=== PATIENT | male | born 1970 | race Caucasian/White ===

== ENCOUNTER 2016-09-18 14:20 | Emergency (ER) | payer SELFPAY ==
[~2016-09-18 14:20] MED LIST: ACET325T9 PO; ALBU18HF IH; ATOR20TA PO; IBUP-1227 PO; NAPR375T3 PO
[2016-09-18] MEDS ORDERED: IV NORMAL SALINE 1,000ML 1,000 ML IV ONE ×2 (14:30→16:20)
[2016-09-18] MEDS ORDERED: NALOXONE 0.4 MG/ML VIAL. ONE (14:30)
[2016-09-18] MEDS ORDERED: NALOXONE 0.4 MG/ML VIAL. IV ONE (15:00)
--- NOTE | 2016-09-18 15:03 | EKG ---
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
[2016-09-18 15:06] LABS: ACETAMIN 87.9 mcg/mL (10-30); ETHANOL < 10 mg/dL (0-10); SALIC 3.1 mg/dL (2.8-20.0)
[2016-09-18 15:07] LABS: CALCIUM 8.8 mg/dL (8.5-10.1); CREATININE 1.1 mg/dL (0.7-1.3); DIRECT BILIRUBIN 0.2 mg/dL (0.0-0.2); GFR 72.7; POTASSIUM 3.5 mmol/L (3.5-5.1); TOTAL PROTEIN 7.2 g/dL (6.4-8.2)
[2016-09-18] MEDS ORDERED: NALOXONE 2 MG in IV DEXTROSE 5% 500 ML IV ONE ×4 (15:30)
[2016-09-18 15:34] LABS: BARBITURATES NEG (NEG); BENZODIAZEPINES NEG (NEG); CANNABINOIDS NEG (NEG); COCAINE NEG (NEG); METHADONE NEG (NEG); OPIATES POS (NEG); PHENCYCLIDINE NEG (NEG)
[2016-09-18 15:35] LABS: AMPHETAMINE/METHAMPHETAMINE POS (NEG)
--- NOTE | 2016-09-18 15:37 | RAD ---
Interval AP view CXR: Clinical indications: Overdose. Drowsiness. Weakness. Comparison: October 29, 2015. Findings: No acute lung infiltrate or pleural effusion or pulmonary edema or lung mass or pneumothorax is seen. The heart size, pulmonary vasculature, mediastinum and both avelina are unremarkable. Impression: No acute radiographic abnormality is seen.
[2016-09-18 15:43] LABS: BILIRUBIN,URINE NEG (NEG); CLARITY,URINE CLEAR; COLOR,URINE YELLOW; GLUCOSE,URINE NEG (NEG); NITRITE,URINE NEG (NEG); UROBILINOGEN,URINE 0.2 mg/dL (0.2 mg/dL)
[2016-09-18 15:44] LABS: BACTERIA,URINE 0 /HPF (0-FEW); RBC,URINE 0 /HPF (0-2); SQUAMOUS EPITHELIAL CELL,UR OCC /LPF; WBC,URINE OCC /HPF (0-4)
[2016-09-18 16:18] LABS: BASO # 0.1 x10^3/uL (0.0-0.2); BASO % 1 % (0-3); EOS # 0.2 x10^3/uL (0.0-0.7); EOS % 2 % (0-3); HEMATOCRIT 49.1 % (39.0-53.0); HEMOGLOBIN 16.7 g/dL (13.0-17.5); LYMPH # 2.5 x10^3/uL (1.0-4.8); LYMPH % 22 % (24-48); MEAN CORPUSCULAR HEMOGLOBIN 32 pg (25-35); MEAN CORPUSCULAR HGB CONC 34 g/dL (31-37); MEAN CORPUSCULAR VOLUME 92 fL (79-100); MONO # 0.4 x10^3/uL (0.0-1.1); MONO % 3 % (0-9); NEUT # 8.4 x10^3uL (1.8-7.7); NEUT % 73 % (31-73); PLATELET COUNT 288 x10^3/uL (140-400); RED BLOOD COUNT 5.32 x10^6/uL (4.30-5.70); RED CELL DISTRIBUTION WIDTH 13.7 % (11.5-14.5); WHITE BLOOD COUNT 11.5 x10^3/uL (4.0-11.0)
--- NOTE | 2016-09-18 17:06 | ED.ADGEN ---
Past History Past Medical History: Arthritis, Asthma, Depression, High Cholesterol, Other Past Surgical History: Appendectomy, Tonsillectomy Alcohol Use: Occasionally Drug Use: Marijuana, Other Social History Narrative: acid Adult General HPI HPI Patient is a 45-year-old man, history of asthma, depression, anxiety, who presents emergency Department with his with report of an intentional ingestion of approximately 20 tablets of hydrocodone/acetaminophen, 53 25 mg. Patient is tearful upon arousing emergency department, and states "I'm just tired of living". Patient's states that he took a large handful of pills in front of her, she states that he he did cough up some pills, maybe as many as 5 or 6, but did ingest the rest. Patient denies any other ingestions, and patient's states she does not believe that he had access or took any other medications. Patient does not use his medications regular basis. Patient is also experiencing auditory hallucinations, although he'll not answer my questions about these hallucinations at this time, patient's reports that it isn't having 2 more frequently. She states that he previously was evaluated by a local therapy group, but is not currently on medication. No other self injures behaviors or homicidal ideation or activities reported. At this time the patient states that he is willing to seek help, he is crying during my evaluation. Review of Systems Review of Systems Constitutional: Denies fever or chills [] Eyes: Denies change in visual acuity, redness, or eye pain [] HENT: Denies nasal congestion or sore throat [] Respiratory: Denies cough or shortness of breath [] Cardiovascular: No additional information not addressed in HPI [] GI: Denies abdominal pain, nausea, vomiting, bloody stools or diarrhea [] : Denies dysuria or hematuria [] Musculoskeletal: Denies back pain or joint pain [] Integument: Denies rash or skin lesions [] Neurologic: Denies headache, focal weakness or sensory changes [] Endocrine: Denies polyuria or polydipsia [] Depression and anxiety with suicidal ideation and auditory hallucinations. Current Medications Current Medications Current Medications Medications (Trade) Dose Ordered Sig/Umer Start Time Stop Time Status Last Admin Dose Admin Naloxone HCl (Narcan) 0.4 mg STK-MED ONCE 09/18/16 14:30 09/18/16 14:31 DC Naloxone HCl 0.4 mg 0.4 mg 1X ONCE 09/18/16 15:00 09/18/16 15:01 DC 09/18/16 14:35 0.4 MG Naloxone HCl 2 mg/ Dextrose 502 ml @ 0 mls/hr 1X ONCE 09/18/16 15:30 09/18/16 15:31 DC 09/18/16 15:28 62.5 MLS/HR Sodium Chloride (Iv Sodium Chloride 0.9% 1,000ml) 1,000 ml @ 1,000 mls/hr 1X ONCE 09/18/16 16:20 09/18/16 17:19 DC 09/18/16 14:30 1,000 MLS/HR Allergies Allergies Allergies Coded Allergies Type Severity Reaction Last Updated Verified No Known Drug Allergies 11/04/14 No Physical Exam Physical Exam Constitutional: Well developed, well nourished, patient is anxious, tearful, nontoxic in appearance. HENT: Normocephalic, atraumatic, bilateral external ears normal, oropharynx moist, no oral exudates, nose normal. [] Eyes: Pinpoint pupils, PERRLA, EOMI, conjunctiva normal, no discharge. [] Neck: Normal range of motion, no tenderness, supple, no stridor. [] Cardiovascular:Heart rate regular rhythm, no murmur him S1, S2, rubs or gallops. [] Lungs & Thorax: Bilateral breath sounds clear to auscultation , no wheezing, rhonchi, rales. No chest or crepitus or tenderness. [] Abdomen: Bowel sounds normal, soft, no tenderness, no rebound, rigidity, no guarding, no masses, no pulsatile masses. [] Skin: Warm, dry, no erythema, no rash. [] Back: No tenderness, no CVA tenderness. [] Extremities: No tenderness, no cyanosis, no clubbing, ROM intact, no edema. [] Neurologic: Alert and oriented X 3, normal motor function, normal sensory function, no focal deficits noted. [] Psychologic: Patient is tearful, appears to have good insight, answering questions appropriately. Current Patient Data Vital Signs Vital Signs Date Time Temp Pulse Resp B/P Pulse Ox O2 Delivery O2 Flow Rate FiO2 09/18/16 14:20 97.8 91 14 96 Room Air Lab Results Laboratory Tests Test 09/18/16 14:33 09/18/16 14:35 09/18/16 14:55 White Blood Count 11.5x10^3/uL (4.0-11.0) H Red Blood Count 5.32x10^6/uL (4.30-5.70) Hemoglobin 16.7g/dL (13.0-17.5) Hematocrit 49.1% (39.0-53.0) Mean Corpuscular Volume 92fL (79-100) Mean Corpuscular Hemoglobin 32pg (25-35) Mean Corpuscular Hemoglobin Concent 34g/dL (31-37) Red Cell Distribution Width 13.7% (11.5-14.5) Platelet Count 288x10^3/uL (140-400) Neutrophils (%) (Auto) 73% (31-73) Lymphocytes (%) (Auto) 22% (24-48) L Monocytes (%) (Auto) 3% (0-9) Eosinophils (%) (Auto) 2% (0-3) Basophils (%) (Auto) 1% (0-3) Neutrophils # (Auto) 8.4x10^3uL (1.8-7.7) H Lymphocytes # (Auto) 2.5x10^3/uL (1.0-4.8) Monocytes # (Auto) 0.4x10^3/uL (0.0-1.1) Eosinophils # (Auto) 0.2x10^3/uL (0.0-0.7) Basophils # (Auto) 0.1x10^3/uL (0.0-0.2) Prothrombin Time 11.1SEC (9.4-11.4) Prothrombin Time INR 1.1 (0.9-1.1) PTT 32SEC (23-33) Sodium Level 139mmol/L (136-145) 140mmol/L (136-145) Potassium Level 3.5mmol/L (3.5-5.1) 3.4mmol/L (3.5-5.1) L Chloride Level 101mmol/L (98-107) 101mmol/L (98-107) Carbon Dioxide Level 26mmol/L (21-32) 25mmol/L (21-32) Anion Gap 12 (6-14) 14 (6-14) Blood Urea Nitrogen 8mg/dL (8-26) 8mg/dL (8-26) Creatinine 1.1mg/dL (0.7-1.3) 1.1mg/dL (0.7-1.3) Estimated GFR (Cockcroft-Gault) 72.7 72.7 Glucose Level 143mg/dL (70-99) H 141mg/dL (70-99) H Calcium Level 8.8mg/dL (8.5-10.1) 8.8mg/dL (8.5-10.1) Total Bilirubin 1.0mg/dL (0.2-1.0) 1.0mg/dL (0.2-1.0) Direct Bilirubin 0.2mg/dL (0.0-0.2) Aspartate Amino Transferase (AST) 9U/L (15-37) L 9U/L (15-37) L Alanine Aminotransferase (ALT) 16U/L (16-63) 17U/L (16-63) Alkaline Phosphatase 58U/L (46-116) 59U/L (46-116) Total Protein 7.2g/dL (6.4-8.2) 7.2g/dL (6.4-8.2) Albumin 4.0g/dL (3.4-5.0) 4.0g/dL (3.4-5.0) Salicylates Level 3.1mg/dL (2.8-20.0) Salicylate Last Dose Date 09/18/16 Salicylate Last Dose Time 1300 Acetaminophen Level 87.9mcg/mL (10-30) H 88.5mcg/mL (10-30) H Acetaminophen Last Dose Date 09/18/16 09/18/16 Acetaminophen Last Dose Time 1300 1330 Ethyl Alcohol Level < 10mg/dL (0-10) BUN/Creatinine Ratio 7 (6-20) Albumin/Globulin Ratio 1.3 (1.0-1.7) Urine Collection Type Unknown Urine Color Yellow Urine Clarity Clear Urine pH 5.0 Urine Specific Galvin 1.010 Urine Protein Neg (NEG-TRACE) Urine Glucose (UA) Negmg/dL (NEG) Urine Ketones (Stick) Negmg/dL (NEG) Urine Blood Neg (NEG) Urine Nitrite Neg (NEG) Urine Bilirubin Neg (NEG) Urine Urobilinogen Dipstick 0.2mg/dL (0.2 mg/dL) Urine Leukocyte Esterase Neg (NEG) Urine RBC 0/HPF (0-2) Urine WBC Occ/HPF (0-4) Urine Squamous Epithelial Cells Occ/LPF Urine Bacteria 0/HPF (0-FEW) Urine Mucus Slight/LPF Urine Opiates Screen Pos (NEG) Urine Methadone Screen Neg (NEG) Urine Barbiturates Neg (NEG) Urine Phencyclidine Screen Neg (NEG) Urine Amphetamine/Methamphetamine Pos (NEG) Urine Benzodiazepines Screen Neg (NEG) Urine Cocaine Screen Neg (NEG) Urine Cannabinoids Screen Neg (NEG) Urine Ethyl Alcohol Neg (NEG) EKG EKG EC: Sinus rhythm, heart rate 82 beats minute, upright axis, QTC of 421, [place] of 162, QRS of 88, no ST elevations or depressions, no evidence of acute ST abnormalities. As read by me. [] Radiology/Procedures Radiology/Procedures [] [address] [address] IMAGING REPORT Signed PATIENT: SAIRA CLAY ACCOUNT: [id number] : 1970 LOCATION: ER AGE: 45 SEX: M EXAM STATUS: REG ER ORD. PHYSICIAN: ROXANNE RODRÍGUEZ DO REASON: Overdose, drowsiness, weakness PROCEDURE: PORTABLE CHEST 1V Interval AP view CXR: Clinical indications: Overdose. Drowsiness. Weakness. Comparison: October 29, 2015. Findings: No acute lung infiltrate or pleural effusion or pulmonary edema or lung mass or pneumothorax is seen. The heart size, pulmonary vasculature, mediastinum and both avelina are unremarkable. Impression: No acute radiographic abnormality is seen. DICTATED AND SIGNED BY: BILL VICTORIA MD DATE: 09/18/16 1533 CC: ROXANNE RODRÍGUEZ DO; ADITYA JIMENEZ ~ Course & Med Decision Making Course & Med Decision Making Pertinent Labs and Imaging studies reviewed. (See chart for details) Initial laboratory studies drawn upon arrival in the ED, approximate 1 hour from ingestion per report, patient's initial acetaminophen level 87.9, LFTs and coags within normal limits. I did speak with poison control, upon patient's arrival to the ED, approximated acetaminophen ingestion of 6.5 g, below toxic dose, however patient's opioid ingestion is significant, patient did receive a dose of Narcan in the ED for an episode of diminished responsiveness and diminished respirations, and was placed on a Narcan drip with improvement, patient was never hypotensive or bradycardic, although his oxygen saturation did drop down to the mid 80s during his initial evaluation. Blood pressure remains 120s over 70s, with heart rate in the 60s, Narcan drip, oxygen saturations 97% on room air with respiratory rate in the teens. I did discuss with patient and at bedside medical management and monitoring, and need for admission for both medical and psychiatric care. Patient is agreeable with this plan as is his at bedside. He is uncooperative at this point. Per poison control, no indication for neck to be given at this time, patient is seated is on a Narcan drip, 4 hour acetaminophen and LFT levels are ordered. I did speak to Dr. Holley of internal medicine at [facility], who stated that due to the patient's complicated medical and psychological issues, that he would request the patient be transferred to a facility agreeable to provide both intensive medical and psychiatric care. I did speak to nurse coordinator Annel at via the transfer line, patient was accepted to the service of Dr. Serrano. Patient resting comfortably, stable in the monitor in sinus rhythm with patient's at bedside, awake alert and oriented, awaiting transport to . Final Impression Final Impression [] Problems: (1) Suicidal ideation (2) Acetaminophen abuse (3) Opioid overdose Qualifiers: Qualified Code: T40.2X2A - Poisoning by other opioids, intentional self-harm , initial encounter (4) Auditory hallucinations Dragon Disclaimer Dragon Disclaimer This electronic medical record was generated, in whole or in part, using a voice recognition dictation system. ROXANNE RODRÍGUEZ DO Sep 18, 2016 17:06
[2016-09-18 17:31] LABS: ALBUMIN/GLOBULIN RATIO 1.3 (1.0-1.7); CALCIUM 8.8 mg/dL (8.5-10.1); CREATININE 1.1 mg/dL (0.7-1.3); GFR 72.7; POTASSIUM 3.4 mmol/L (3.5-5.1); TOTAL PROTEIN 7.2 g/dL (6.4-8.2)
[2016-09-18 17:33] LABS: ACETAMIN 88.5 mcg/mL (10-30)
[2016-09-18 18:40] VITALS: BP 112/72
--- NOTE | 2016-09-21 07:00 | EKG ---
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
== END 2016-09-18 18:45 ==
LOC: ER 14:20
DX: T40.2X2A Poisoning by other opioids, intentional self-harm, initial encounter (principal); T39.1X2A Poisoning by 4-Aminophenol derivatives, intentional self-harm, initial encounter; R45.851 Suicidal ideations; F19.10 Other psychoactive substance abuse, uncomplicated; R44.0 Auditory hallucinations; F32.9 Major depressive disorder, single episode, unspecified; F41.9 Anxiety disorder, unspecified; E78.00 Pure hypercholesterolemia, unspecified; M19.90 Unspecified osteoarthritis, unspecified site; J45.909 Unspecified asthma, uncomplicated; F12.10 Cannabis abuse, uncomplicated; Y92.89 Other specified places as the place of occurrence of the external cause
CPT/HCPCS: 36415; 51701; 71010; 80048; 80053; 80076; 80305; 80320; 81001; 85027; 85610; 85730; 93005; 96361; 96365; 96376; 99285; G6038; J2310; G0480; G0481; 80196; J7030

== ENCOUNTER 2016-10-04 20:57 | Emergency (ER) | payer SELFPAY ==
[~2016-10-04] VITALS: Ht 177.8 cm; Wt 88.0 kg
[2016-10-04 21:00] VITALS: BP 135/83
[2016-10-04 21:41] LABS: BASO # 0.1 x10^3/uL (0.0-0.2); BASO % 1 % (0-3); EOS # 0.3 x10^3/uL (0.0-0.7); EOS % 3 % (0-3); HEMOGLOBIN 14.9 g/dL (13.0-17.5); LYMPH # 2.5 x10^3/uL (1.0-4.8); LYMPH % 20 % (24-48); MEAN CORPUSCULAR HEMOGLOBIN 32 pg (25-35); MEAN CORPUSCULAR HGB CONC 35 g/dL (31-37); MEAN CORPUSCULAR VOLUME 92 fL (79-100); MONO # 0.6 x10^3/uL (0.0-1.1); MONO % 5 % (0-9); NEUT # 9.1 x10^3uL (1.8-7.7); NEUT % 72 % (31-73); PLATELET COUNT 231 x10^3/uL (140-400); RED CELL DISTRIBUTION WIDTH 13.8 % (11.5-14.5); WHITE BLOOD COUNT 12.7 x10^3/uL (4.0-11.0)
[2016-10-04 21:46] LABS: ALBUMIN 3.3 g/dL (3.4-5.0); ALBUMIN/GLOBULIN RATIO 1.1 (1.0-1.7); CALCIUM 8.7 mg/dL (8.5-10.1); DIRECT BILIRUBIN 0.1 mg/dL (0.0-0.2); GFR 81.2; POTASSIUM 3.7 mmol/L (3.5-5.1); TOTAL BILIRUBIN 0.4 mg/dL (0.2-1.0); TOTAL PROTEIN 6.4 g/dL (6.4-8.2)
[2016-10-04 21:55] LABS: BACTERIA,URINE 0 /HPF (0-FEW); BILIRUBIN,URINE NEG (NEG); CLARITY,URINE CLEAR; COLOR,URINE YELLOW; GLUCOSE,URINE NEG (NEG); NITRITE,URINE NEG (NEG); RBC,URINE 0 /HPF (0-2); UROBILINOGEN,URINE 1 mg/dL (0.2 mg/dL); WBC,URINE 0 /HPF (0-4)
--- NOTE | 2016-10-04 21:59 | PHYS DOC ---
Past History Past Medical History: Arthritis, Asthma, Depression, High Cholesterol, Other Past Surgical History: Appendectomy, Tonsillectomy Smoking: Cigarettes Alcohol Use: Occasionally Drug Use: Marijuana, Other Adult General Chief Complaint Chief Complaint: "I'm worried I'm jaundiced" HPI HPI Patient is a 45 year old male who presents with the concern that he may be jaundiced. He had an initial overdose of Vicodin on September 18. He was then admitted to [facility] and then psychiatry following that. He was just discharged on September 26.v has been feeling well except developed a slight backache. He was out camping on Monday. He had small amount of alcohol on Monday night. No nausea vomiting, no abdominal pain. He thought his eyes looked a little "yellow". Review of Systems Review of Systems Constitutional: Denies fever or chills Eyes: Denies change in visual acuity, redness, or eye pain HENT: Denies nasal congestion or sore throat. allergy symptoms Respiratory: Denies cough or shortness of breath Cardiovascular: No chest pain or syncope. GI: Denies abdominal pain, nausea, vomiting, bloody stools or diarrhea : Denies dysuria or hematuria Musculoskeletal: Mild low back pain or joint pain; no pedal edema. Integument: scattered bites on abdomen; no pruritics Neurologic: Denies headache, focal weakness or sensory changes Current Medications Current Medications Current Medications Medications (Trade) Dose Ordered Sig/Umer Start Time Stop Time Status Last Admin Dose Admin Ondansetron HCl (Zofran) 4 mg 1X ONCE 10/04/16 22:00 10/04/16 22:01 Sodium Chloride 1,000 ml @ 1,000 mls/hr Q1H 10/04/16 22:00 10/04/16 22:59 Allergies Allergies Allergies Coded Allergies Type Severity Reaction Last Updated Verified No Known Drug Allergies 11/04/14 No Physical Exam Physical Exam Constitutional: Well developed, well nourished, no acute distress, non-toxic appearance. HENT: Normocephalic, atraumatic, bilateral external ears normal, oropharynx moist, no oral exudates, nose normal. Eyes: PERRLA, EOMI, conjunctiva normal, no discharge. Sclera non-icteric Neck: Normal range of motion, no tenderness, supple, no stridor. Cardiovascular:Heart rate regular rhythm, no murmur Lungs & Thorax: Bilateral breath sounds clear to auscultation Abdomen: Bowel sounds normal, soft, no tenderness, no masses, no pulsatile masses. No ascites. No hepatosplenomegaly. Skin: Warm, dry, no erythema, scattered small red raised maculopapular lesions noted on abdomen. No spider angiomas, no petecchiae. No stria. Back: No tenderness, no CVA tenderness. Extremities: No tenderness, no cyanosis, no clubbing, ROM intact, no edema. Neurologic: Alert and oriented X 3, normal motor function, normal sensory function, no focal deficits noted. Psychologic: Affect normal, judgement normal, mood normal. Current Patient Data Vital Signs 135/83, P85, R 20, 98% sat, T 98.3 Lab Results Laboratory Tests Test 10/04/16 21:10 10/04/16 21:20 Urine Collection Type Unknown Urine Color Yellow Urine Clarity Clear Urine pH 6.5 Urine Specific [place] 1.020 Urine Protein Neg Urine Glucose (UA) Neg mg/dL Urine Ketones (Stick) Neg mg/dL Urine Blood Neg Urine Nitrite Neg Urine Bilirubin Neg Urine Urobilinogen Dipstick 1 mg/dL Urine Leukocyte Esterase Neg Urine RBC 0 /HPF Urine WBC 0 /HPF Urine Squamous Epithelial Cells None /LPF Urine Bacteria 0 /HPF White Blood Count 12.7 x10^3/uL Red Blood Count 4.70 x10^6/uL Hemoglobin 14.9 g/dL Hematocrit 43.0 % Mean Corpuscular Volume 92 fL Mean Corpuscular Hemoglobin 32 pg Mean Corpuscular Hemoglobin Concent 35 g/dL Red Cell Distribution Width 13.8 % Platelet Count 231 x10^3/uL Neutrophils (%) (Auto) 72 % Lymphocytes (%) (Auto) 20 % Monocytes (%) (Auto) 5 % Eosinophils (%) (Auto) 3 % Basophils (%) (Auto) 1 % Neutrophils # (Auto) 9.1 x10^3uL Lymphocytes # (Auto) 2.5 x10^3/uL Monocytes # (Auto) 0.6 x10^3/uL Eosinophils # (Auto) 0.3 x10^3/uL Basophils # (Auto) 0.1 x10^3/uL Prothrombin Time 10.2 SEC Prothromb Time International Ratio 1.0 Activated Partial Thromboplast Time 31 SEC Sodium Level 143 mmol/L Potassium Level 3.7 mmol/L Chloride Level 106 mmol/L Carbon Dioxide Level 27 mmol/L Anion Gap 10 Blood Urea Nitrogen 14 mg/dL Creatinine 1.0 mg/dL Estimated GFR (Cockcroft-Gault) 81.2 BUN/Creatinine Ratio 14 Glucose Level 93 mg/dL Calcium Level 8.7 mg/dL Total Bilirubin 0.4 mg/dL Direct Bilirubin 0.1 mg/dL Aspartate Amino Transf (AST/SGOT) 11 U/L Alanine Aminotransferase (ALT/SGPT) 24 U/L Alkaline Phosphatase 55 U/L Total Protein 6.4 g/dL Albumin 3.3 g/dL Albumin/Globulin Ratio 1.1 Lipase 214 U/L Current Medications Medications (Trade) Dose Ordered Sig/Umer Route PRN Reason Start Time Stop Time Status Last Admin Dose Admin Sodium Chloride 1,000 ml @ 1,000 mls/hr Q1H IV 10/04/16 22:00 10/04/16 22:59 Ondansetron HCl (Zofran) 4 mg 1X ONCE IV 10/04/16 22:00 10/04/16 22:01 DC Laboratory Tests Test 10/04/16 21:20 White Blood Count 12.7 x10^3/uL (4.0-11.0) H Red Blood Count 4.70 x10^6/uL (4.30-5.70) Hemoglobin 14.9 g/dL (13.0-17.5) Hematocrit 43.0 % (39.0-53.0) Mean Corpuscular Volume 92 fL (79-100) Mean Corpuscular Hemoglobin 32 pg (25-35) Mean Corpuscular Hemoglobin Concent 35 g/dL (31-37) Red Cell Distribution Width 13.8 % (11.5-14.5) Platelet Count 231 x10^3/uL (140-400) Neutrophils (%) (Auto) 72 % (31-73) Lymphocytes (%) (Auto) 20 % (24-48) L Monocytes (%) (Auto) 5 % (0-9) Eosinophils (%) (Auto) 3 % (0-3) Basophils (%) (Auto) 1 % (0-3) Neutrophils # (Auto) 9.1 x10^3uL (1.8-7.7) H Lymphocytes # (Auto) 2.5 x10^3/uL (1.0-4.8) Monocytes # (Auto) 0.6 x10^3/uL (0.0-1.1) Eosinophils # (Auto) 0.3 x10^3/uL (0.0-0.7) Basophils # (Auto) 0.1 x10^3/uL (0.0-0.2) Sodium Level 143 mmol/L (136-145) Potassium Level 3.7 mmol/L (3.5-5.1) Chloride Level 106 mmol/L (98-107) Carbon Dioxide Level 27 mmol/L (21-32) Anion Gap 10 (6-14) Blood Urea Nitrogen 14 mg/dL (8-26) Creatinine 1.0 mg/dL (0.7-1.3) Estimated GFR (Cockcroft-Gault) 81.2 BUN/Creatinine Ratio 14 (6-20) Glucose Level 93 mg/dL (70-99) Calcium Level 8.7 mg/dL (8.5-10.1) Total Bilirubin 0.4 mg/dL (0.2-1.0) Direct Bilirubin 0.1 mg/dL (0.0-0.2) Aspartate Amino Transferase (AST) 11 U/L (15-37) L Alanine Aminotransferase (ALT) 24 U/L (16-63) Alkaline Phosphatase 55 U/L (46-116) Total Protein 6.4 g/dL (6.4-8.2) Albumin 3.3 g/dL (3.4-5.0) L Albumin/Globulin Ratio 1.1 (1.0-1.7) Lipase 214 U/L (73-393) Course & Med Decision Making Course & Med Decision Making Pertinent Labs and Imaging studies reviewed. (See chart for details) He is concerned about the after effects of Tylenol overdose. Presently his exam does not reveal an acute hepatic failure. No evidence of jaundice. No spider angioma. No petechiae. Abdomen is soft with no ascites. Coags normal as well. Dragon Disclaimer Dragon Disclaimer This chart was dictated in whole or in part using Voice Recognition software in a busy, high-work load, and often noisy Emergency Department environment. It may contain unintended and wholly unrecognized errors or omissions. Departure Departure: Disposition: 01 HOME, SELF-CARE Condition: GOOD Referrals: ADITYA JIMENEZ (PCP) JERRY BLAKELY MD October 04, 2016 21:59
[2016-10-04] MEDS: ONDANSETRON PF 4 MG/2 ML VIAL. IV ONE (22:00)
[2016-10-04] MEDS: IV NORMAL SALINE 1,000ML 1,000 ML IV SCH (22:00)
== END 2016-10-04 22:50 | disposition home or self-care (01) ==
LOC: ER 20:57
DX: M54.5 Low back pain (principal); J45.909 Unspecified asthma, uncomplicated; E78.00 Pure hypercholesterolemia, unspecified; M19.90 Unspecified osteoarthritis, unspecified site; F17.210 Nicotine dependence, cigarettes, uncomplicated; F12.10 Cannabis abuse, uncomplicated
CPT/HCPCS: 36415; 80053; 80076; 81001; 83690; 85027; 85610; 85730; 96361; 96374; 99284; J2405; J7030

== ENCOUNTER 2016-10-11 22:11 | Emergency (ER) | payer SELFPAY ==
[~2016-10-11] VITALS: Ht 177.8 cm; Wt 88.0 kg
--- NOTE | 2016-10-11 22:19 | ED.ADGEN ---
Past History Past Medical History: Depression Past Surgical History: No Surgical History Smoking: Cigarettes Alcohol Use: None Drug Use: None Adult General Chief Complaint Chief Complaint Nausea vomiting abdominal pain [facility] HPI Patient is a 45 year old male who presents with nausea vomiting abdominal pain. He states it started yesterday he was in a [facility] hospital and received IV fluids and GI cocktail and felt better and was discharged home. Today he has been out of town in getting a chance to fill his anti-nausea/ heartburn medicine and tonight at 7 PM he started having nausea vomiting and abdominal pain again. He points to his epigastric area and states it hurts across her. Nothing makes it better or worse. He is thrown up all of his food he ate today. He did have a normal bowel movement early this morning. He has had his appendix removed approximately 12:15 years ago. He denies any chest pain shortness of breath. Review of Systems Review of Systems Constitutional: Denies fever or chills [] Eyes: Denies change in visual acuity, redness, or eye pain [] HENT: Denies nasal congestion or sore throat [] Respiratory: Denies cough or shortness of breath [] Cardiovascular: No additional information not addressed in HPI [] GI: Positive for abdominal pain, nausea, vomiting, denies any bloody stools or diarrhea [] : Denies dysuria or hematuria [] Musculoskeletal: Denies back pain or joint pain [] Integument: Denies rash or skin lesions [] Neurologic: Denies headache, focal weakness or sensory changes [] Endocrine: Denies polyuria or polydipsia [] Current Medications Current Medications Current Medications Medications (Trade) Dose Ordered Sig/[facility] Start Time Stop Time Status Last Admin Dose Admin Info (Do NOT chart on this entry -- for MONITORING) 1 each PRN DAILY PRN 10/12/16 00:15 10/14/16 00:14 Iohexol (Omnipaque 300 Mg/ml) 75 ml 1X ONCE 10/12/16 00:15 10/12/16 00:16 DC 10/12/16 00:17 75 ML Morphine Sulfate (Morphine 4mg Syringe) 4 mg PRN Q15MIN PRN 10/11/16 22:30 10/12/16 22:29 10/11/16 22:55 4 MG Multi-Ingredient Mouthwash/Gargle (Gi Cocktail) 20 ml 1X ONCE 10/12/16 00:30 10/12/16 00:53 DC 10/12/16 00:30 20 ML Ondansetron HCl (Zofran) 4 mg 1X ONCE 10/11/16 23:15 10/11/16 23:16 DC 10/11/16 22:55 4 MG Sodium Chloride 1,000 ml @ 1,000 mls/hr Q1H 10/11/16 22:27 10/11/16 23:26 DC 10/11/16 22:55 1,000 MLS/HR Allergies Allergies Allergies Coded Allergies Type Severity Reaction Last Updated Verified No Known Drug Allergies 11/04/14 No Physical Exam Physical Exam Constitutional: Well developed, well nourished, no acute distress, non-toxic appearance. [] HENT: Normocephalic, atraumatic, bilateral external ears normal, oropharynx moist, no oral exudates, nose normal. [] Eyes: PERRLA, EOMI, conjunctiva normal, no discharge. [] Neck: Normal range of motion, no tenderness, supple, no stridor. [] Cardiovascular:Heart rate regular rhythm, no murmur [] Lungs & Thorax: Bilateral breath sounds clear to auscultation [] Abdomen: Bowel sounds normal, soft, mild tender to palpation epigastric area, no rebound or guarding, no masses, no pulsatile masses. [] Skin: Warm, dry, no erythema, no rash. [] Back: No tenderness, no CVA tenderness. [] Extremities: No tenderness, no cyanosis, no clubbing, ROM intact, no edema. [] Neurologic: Alert and oriented X 3, normal motor function, normal sensory function, no focal deficits noted. [] Psychologic: Affect normal, judgement normal, mood normal. [] Current Patient Data Vital Signs Vital Signs Date Time Temp Pulse Resp B/P (MAP) Pulse Ox O2 Delivery O2 Flow Rate FiO2 10/12/16 01:15 71 18 133/89 (104) 98 10/11/16 23:30 Room Air 10/11/16 22:15 97.0 Lab Results Laboratory Tests Test 10/11/16 22:45 10/11/16 22:50 Urine Collection Type Unknown Urine Color Yellow Urine Clarity Clear Urine pH 8.5 Urine Specific [place] 1.015 Urine Protein Neg (NEG-TRACE) Urine Glucose (UA) Neg mg/dL (NEG) Urine Ketones (Stick) Neg mg/dL (NEG) Urine Blood Neg (NEG) Urine Nitrite Neg (NEG) Urine Bilirubin Neg (NEG) Urine Urobilinogen Dipstick 0.2 mg/dL (0.2 mg/dL) Urine Leukocyte Esterase Neg (NEG) Urine RBC Rare /HPF (0-2) Urine WBC 0 /HPF (0-4) Urine Squamous Epithelial Cells None /LPF Urine Amorphous Sediment Present /HPF Urine Bacteria 0 /HPF (0-FEW) Urine Opiates Screen Neg (NEG) Urine Methadone Screen Neg (NEG) Urine Barbiturates Neg (NEG) Urine Phencyclidine Screen Neg (NEG) Urine Amphetamine/Methamphetamine Neg (NEG) Urine Benzodiazepines Screen Neg (NEG) Urine Cocaine Screen Neg (NEG) Urine Cannabinoids Screen Neg (NEG) Urine Ethyl Alcohol Neg (NEG) White Blood Count 16.5 x10^3/uL (4.0-11.0) H Red Blood Count 5.33 x10^6/uL (4.30-5.70) Hemoglobin 17.0 g/dL (13.0-17.5) Hematocrit 47.9 % (39.0-53.0) Mean Corpuscular Volume 90 fL (79-100) Mean Corpuscular Hemoglobin 32 pg (25-35) Mean Corpuscular Hemoglobin Concent 35 g/dL (31-37) Red Cell Distribution Width 14.0 % (11.5-14.5) Platelet Count 251 x10^3/uL (140-400) Neutrophils (%) (Auto) 84 % (31-73) H Lymphocytes (%) (Auto) 10 % (24-48) L Monocytes (%) (Auto) 4 % (0-9) Eosinophils (%) (Auto) 1 % (0-3) Basophils (%) (Auto) 1 % (0-3) Neutrophils # (Auto) 13.8 x10^3uL (1.8-7.7) H Lymphocytes # (Auto) 1.7 x10^3/uL (1.0-4.8) Monocytes # (Auto) 0.7 x10^3/uL (0.0-1.1) Eosinophils # (Auto) 0.1 x10^3/uL (0.0-0.7) Basophils # (Auto) 0.2 x10^3/uL (0.0-0.2) Segmented Neutrophils % 74 % (35-66) H Band Neutrophils % 5 % (0-9) Lymphocytes % 12 % (24-48) L Monocytes % 8 % (0-10) Eosinophils % 1 % (0-5) Platelet Estimate Adequate (ADEQUATE) Prothrombin Time 10.4 SEC (9.4-11.4) Prothrombin Time INR 1.0 (0.9-1.1) PTT 30 SEC (23-33) Sodium Level 138 mmol/L (136-145) Potassium Level 3.9 mmol/L (3.5-5.1) Chloride Level 101 mmol/L (98-107) Carbon Dioxide Level 29 mmol/L (21-32) Anion Gap 8 (6-14) Blood Urea Nitrogen 10 mg/dL (8-26) Creatinine 1.1 mg/dL (0.7-1.3) Estimated GFR (Cockcroft-Gault) 72.7 Glucose Level 115 mg/dL (70-99) H Calcium Level 9.4 mg/dL (8.5-10.1) Total Bilirubin 0.7 mg/dL (0.2-1.0) Direct Bilirubin 0.2 mg/dL (0.0-0.2) Aspartate Amino Transferase (AST) 17 U/L (15-37) Alanine Aminotransferase (ALT) 35 U/L (16-63) Alkaline Phosphatase 69 U/L (46-116) Creatine Kinase 46 U/L (39-308) Creatine Kinase MB (Mass) < 0.5 ng/mL (0.0-3.6) Creatine Kinase MB Relative Index 1.1 % (0-4) Troponin I Quantitative < 0.017 ng/mL (0-0.055) Total Protein 7.4 g/dL (6.4-8.2) Albumin 4.0 g/dL (3.4-5.0) Lipase 117 U/L (73-393) EKG EKG EKG shows sinus rhythm 3-[address] elevations or T-wave inversions, normal axis, QTC 402 ms, as interpreted by me. EKG is similar to one performed in August 2016. Radiology/Procedures Radiology/Procedures Acute abdominal series show any focal consolidations, bony abnormalities, free air, bowel obstruction or other concerns. As interpreted by me. [address] [address] IMAGING REPORT Signed PATIENT: SAIRA CLAY ACCOUNT: [id number] : 1970 LOCATION: ER AGE: 45 SEX: M EXAM STATUS: REG ER ORD. PHYSICIAN: VINCENT AVELAR MD REASON: abd pain PROCEDURE: CT ABD PELV W/ IV CONTRST ONLY CT abdomen and pelvis with contrast HISTORY: Abdominal pain, nausea, vomiting, leukocytosis, history of appendectomy. TECHNIQUE: Helical CT imaging abdomen and pelvis with 75 mL Omnipaque 300 intravenous contrast. Abdomen findings: There is extensive bilateral dependent lower lobe opacities and mild volume loss. Chronic mild T10 compression deformity. Liver, gallbladder, pancreas, adrenal glands, spleen and kidneys are unremarkable. There is concentric hypodense submucosal wall thickening of the gastric antrum leading up to the pylorus. There is mild segmental fluid distention and possibly mild fold thickening of the duodenum and proximal jejunum. No bowel obstruction. Appendectomy. A few scattered sigmoid colon diverticuli are present. No abdominal fluid. No adenopathy. Pelvis findings: Bladder, prostate, rectum and bones are unremarkable. No fluid or adenopathy. IMPRESSION: 1. Marked concentric submucosal hypodense wall thickening of the gastric antrum. This raises suspicion of intramural wall edema from gastritis. Malignant infiltration is not excluded although given the uniformity and absence of pathologic enhancement or obstruction, neoplasm may be less likely. Peptic ulcer disease would be a secondary consideration. 2. Increased fluid distention and fold thickening of the duodenum and proximal jejunum could be indicative of enteritis. 3. Extensive opacities of the dependent lower lobes and mild volume loss could be extensive atelectasis although superimposed pneumonitis or infection is not excluded. Electronically signed by: Sandra Christopher MD (10/12/2016 12:44 AM) DICTATED AND SIGNED BY: SANDRA CHRISTOPHER MD DATE: 10/12/16 0033 CC: VINCENT AVELAR MD; ADITYA JIMENEZ Course & Med Decision Making Course & Med Decision Making Pertinent Labs and Imaging studies reviewed. (See chart for details) Labs show any acute abnormalities. His white blood cell count is slightly elevated however this is likely secondary to stress response. He does not have a fever. CT scan shows enteritis and gastritis. We'll discharge with Phenergan, Zofran. He has Protonix prescription already at home. He is instructed to use a bland diet, follow-up with primary care physician and return ER for worsening pain, fevers, blood in his stools or other concerns. Final Impression Final Impression Nausea Vomiting Epigastric discomfort Problems: Dragon Disclaimer Dragon Disclaimer This electronic medical record was generated, in whole or in part, using a voice recognition dictation system. VINCENT AVELAR MD October 11, 2016 22:19
[2016-10-11] MEDS ORDERED: IV NORMAL SALINE 1,000ML 1,000 ML IV SCH (22:27)
[2016-10-11] MEDS ORDERED: MORPHINE SULFATE 4 MG/ML DISP.SYRIN. IV/SQ PRN (22:30)
--- NOTE | 2016-10-11 22:40 | EKG ---
[address] [address] Test Date: 2016-10-11 Test Time: 22:41:24 Pat Name: SAIRA CLAY Department: Room: Gender: M [employer]: : 1970 Requested By: VINCENT AVELAR Order Number: [id number] Reading MD: Ronal Strong Measurements Intervals [place] Rate: 72 P: 40 SD: 150 QRS: 62 QRSD: 84 T: 68 QT: 366 QTc: 402 Interpretive Statements SINUS RHYTHM Electronically Signed On 10-13-2016 15:34:42 CDT by Ronal Strong
[2016-10-11] MEDS ORDERED: ONDANSETRON PF 4 MG/2 ML VIAL. IV ONE (23:15)
[2016-10-11 23:17] LABS: BARBITURATES NEG (NEG); BENZODIAZEPINES NEG (NEG); CANNABINOIDS NEG (NEG); COCAINE NEG (NEG); METHADONE NEG (NEG); OPIATES NEG (NEG); PHENCYCLIDINE NEG (NEG)
[2016-10-11 23:19] LABS: AMPHETAMINE/METHAMPHETAMINE NEG (NEG)
[2016-10-11 23:23] LABS: AMORPHOUS SEDIMENT,UR PRESENT /HPF; BACTERIA,URINE 0 /HPF (0-FEW); BILIRUBIN,URINE NEG (NEG); CLARITY,URINE CLEAR; COLOR,URINE YELLOW; GLUCOSE,URINE NEG (NEG); NITRITE,URINE NEG (NEG); RBC,URINE RARE /HPF (0-2); UROBILINOGEN,URINE 0.2 mg/dL (0.2 mg/dL); WBC,URINE 0 /HPF (0-4)
[2016-10-11 23:28] LABS: BASO # 0.2 x10^3/uL (0.0-0.2); BASO % 1 % (0-3); EOS # 0.1 x10^3/uL (0.0-0.7); EOS % 1 % (0-3); HEMATOCRIT 47.9 % (39.0-53.0); LYMPH # 1.7 x10^3/uL (1.0-4.8); LYMPH % 10 % (24-48); MEAN CORPUSCULAR HEMOGLOBIN 32 pg (25-35); MEAN CORPUSCULAR HGB CONC 35 g/dL (31-37); MEAN CORPUSCULAR VOLUME 90 fL (79-100); MONO # 0.7 x10^3/uL (0.0-1.1); MONO % 4 % (0-9); NEUT # 13.8 x10^3uL (1.8-7.7); NEUT % 84 % (31-73); PLATELET COUNT 251 x10^3/uL (140-400); RED BLOOD COUNT 5.33 x10^6/uL (4.30-5.70); WHITE BLOOD COUNT 16.5 x10^3/uL (4.0-11.0)
[2016-10-11 23:32] LABS: ALK PHOS 69 U/L (46-116); ALT (SGPT) 35 U/L (16-63); ANION GAP 8 (6-14); AST (SGOT) 17 U/L (15-37); BLOOD UREA NITROGEN 10 mg/dL (8-26); CALCIUM 9.4 mg/dL (8.5-10.1); CARBON DIOXIDE 29 mmol/L (21-32); CHLORIDE 101 mmol/L (98-107); CREATINE KINASE 46 U/L (39-308); CREATININE 1.1 mg/dL (0.7-1.3); DIRECT BILIRUBIN 0.2 mg/dL (0.0-0.2); GFR 72.7; GLUCOSE 115 mg/dL (70-99); LIPASE 117 U/L (73-393); POTASSIUM 3.9 mmol/L (3.5-5.1); SODIUM 138 mmol/L (136-145); TOTAL BILIRUBIN 0.7 mg/dL (0.2-1.0); TOTAL PROTEIN 7.4 g/dL (6.4-8.2)
[2016-10-11 23:33] LABS: % BANDS 5 % (0-9); % EOS 1 % (0-5); % LYMPHS 12 % (24-48); % MONOS 8 % (0-10); % SEGS 74 % (35-66); PLT ESTIMATE ADEQUATE (ADEQUATE)
[2016-10-12] MEDS ORDERED: IOHEXOL 300 MG/ML 75 ML VIAL. IV ONE (00:15)
[2016-10-12] MEDS ORDERED: CONTRAST GIVEN MC PRN (00:15)
[2016-10-12] MEDS ORDERED: LIDO:MAALOX 1:1 20 ML SINGLE DOSE PO ONE (00:30)
--- NOTE | 2016-10-12 00:47 | RAD ---
CT abdomen and pelvis with contrast HISTORY: Abdominal pain, nausea, vomiting, leukocytosis, history of appendectomy. TECHNIQUE: Helical CT imaging abdomen and pelvis with 75 mL Omnipaque 300 intravenous contrast. Abdomen findings: There is extensive bilateral dependent lower lobe opacities and mild volume loss. Chronic mild T10 compression deformity. Liver, gallbladder, pancreas, adrenal glands, spleen and kidneys are unremarkable. There is concentric hypodense submucosal wall thickening of the gastric antrum leading up to the pylorus. There is mild segmental fluid distention and possibly mild fold thickening of the duodenum and proximal jejunum. No bowel obstruction. Appendectomy. A few scattered sigmoid colon diverticuli are present. No abdominal fluid. No adenopathy. Pelvis findings: Bladder, prostate, rectum and bones are unremarkable. No fluid or adenopathy. IMPRESSION: 1. Marked concentric submucosal hypodense wall thickening of the gastric antrum. This raises suspicion of intramural wall edema from gastritis. Malignant infiltration is not excluded although given the uniformity and absence of pathologic enhancement or obstruction, neoplasm may be less likely. Peptic ulcer disease would be a secondary consideration. 2. Increased fluid distention and fold thickening of the duodenum and proximal jejunum could be indicative of enteritis. 3. Extensive opacities of the dependent lower lobes and mild volume loss could be extensive atelectasis although superimposed pneumonitis or infection is not excluded. Electronically signed by: Prashant Christopher MD (10/12/2016 12:44 AM)
[2016-10-12 01:15] VITALS: BP 133/89
[2016-10-12] MEDS ORDERED: PROM25TA10 PO (01:21)
[2016-10-12] MEDS ORDERED: ONDA4TAB10 SL (01:21)
--- NOTE | 2016-10-12 07:35 | RAD ---
Acute abdomen series with chest, 3 views, 10/11/2016: History: Abdominal pain and nausea The abdominal gas pattern is unremarkable. No free air seen in the abdomen. There is no evidence of organomegaly or abnormal abdominal calcification. The heart size is normal. There is mild linear atelectasis and/or scarring in the left base. No pleural fluid is evident. IMPRESSION: 1. No acute abdominal abnormality is detected. 2. Mild left basilar atelectasis and/or scarring.
== END 2016-10-12 01:25 | disposition home or self-care (01) ==
LOC: ER 22:11
DX: R11.2 Nausea with vomiting, unspecified (principal); R10.13 Epigastric pain; D72.829 Elevated white blood cell count, unspecified; F32.9 Major depressive disorder, single episode, unspecified; F17.210 Nicotine dependence, cigarettes, uncomplicated
CPT/HCPCS: 36415; 74022; 74177; 80048; 80076; 80305; 80320; 81001; 82553; 83690; 84484; 85007; 85027; 85610; 85730; 93005; 96361; 96374; 96375; 99285; J2270; J2405; Q9967; G0481; J7030

== ENCOUNTER 2017-02-19 02:40 | Emergency (ER) | payer OTHER ==
[~2017-02-19] VITALS: Ht 177.8 cm; Wt 88.0 kg
[~2017-02-19 02:40] MED LIST changes: +NAPR-695 PO; -NAPR375T3 PO; +ONDA4TAB10 SL; +PROM25TA10 PO
[2017-02-19 02:57] VITALS: BP 118/68
--- NOTE | 2017-02-19 03:58 | PHYS DOC ---
General Chief Complaint: LOWER EXT PAIN Stated Complaint: KNEE POPPING AND MOVING Time Seen by MD: 03:12 Source: patient Exam Limitations: no limitations Problems: History of Present Illness Initial Comments Pt is 46/M to ED with c/o right knee pain. Pt states 4 days ago walking up stairs at home felt pop right knee. He had pain (points to lateral joint line) but knee did not give out he did not fall. He has had intermittent popping/clicking right knee since then, along with discomfort ascending/descending stairs. No pain at rest, takes meloxicam for "pinched nerve." Tonight while sleeping pt rolled over felt sudden/severe right knee pain again lateral to patella in joint line. No prior knee injury or other trauma, he woke spouse feeling he needed evaluation tonight. On arrival pt comfortable at rest, has pain with full knee extension no pain with flexion. States at times it feels like knee needs to pop, especially under patella. No weakness/numbness/tingling/radiating symptoms. Onset: other Severity: severe Pain/Injury Location: right knee Method of Injury: other Modifying Factors: worse with jarring, worse with movement, improves with rest Allergies: Coded Allergies: acetylcysteine (Verified Allergy, Intermediate, 02/19/17) haloperidol (Verified Allergy, Intermediate, 02/19/17) Past Medical History Medical History: other (anxiety, depression, intentional hydrocodone overdose) Surgical History: noncontributory Social History Smoker: cigarettes Alcohol: occasionally Drugs: none Review of Systems Constitutional: denies chills, denies fever Respiratory: denies cough, denies shortness of breath Cardiovascular: denies chest pain, denies palpitations Gastrointestinal: denies nausea, denies vomiting Genitourinary: denies frequency, denies hematuria Musculoskeletal: see HPI Psychiatric/Neurological: see HPI Physical Exam General Appearance: WD/WN, no apparent distress Neck: full range of motion, supple Cardiovascular/Respiratory: normal peripheral pulses, no respiratory distress Back: no CVA tenderness, no vertebral tenderness Knees: left knee non-tender, left knee normal inspection, left knee normal range of motion, left knee no evidence of injury, right knee other (ligaments intact, medial joint line TTP, joint is warm 1+ effusion, point tender at patella corresponding with x-ray findings) Neurologic/Tendon: normal sensation, normal motor functions, normal tendon functions, responds to pain, no evidence tendon injury Psychiatric: alert, oriented x 3 Skin: warm/dry Orders, Labs, Meds R Knee: patella fracture suspected, non displaced, interpreted by me. I discussed findings as well as immobilizer/crutches and need for follow up. Pt prefers to f/u PCP Monday for recheck and possible ortho eval. Due to OD history morphine 10mg IM given in ED, will take home meds prn otherwise. NV intact after splint placed. Advised to stop smoking. Departure Time of Disposition: 03:56 Disposition: HOME, SELF-CARE Diagnosis: right patella fracture Condition: GOOD Patient Instructions: DOMINICK - Routine Care for Injuries, [id number] Additional Instructions: DOMINICK, see handout. Nonweight bearing crutches only. Continue current medications. Follow up with Dr Oswald Monday for recheck and further imaging/referrals as indicated. Return to ED with new or changing symptoms. HOLLIE TOMAS DO Feb 19, 2017 03:58
[2017-02-19] MEDS ORDERED: MORPHINE SULFATE 10 MG/ML SYRINGE. IM ONE (04:00)
--- NOTE | 2017-02-19 07:40 | RAD ---
Right knee 4 views. History: Right knee pain 4 views were taken of the right knee. There is no fracture or joint effusion. There is normal irregularity at the anterior patella on the sunrise view. Impression: 1. No fracture or acute osseous abnormality noted in the right knee. MRI is more sensitive for soft tissue injury or subtle injuries.
== END 2017-02-19 04:20 | disposition home or self-care (01) ==
LOC: ER 02:40
DX: S82.001A Unspecified fracture of right patella, initial encounter for closed fracture (principal); F17.210 Nicotine dependence, cigarettes, uncomplicated; Z88.8 Allergy status to other drugs, medicaments and biological substances; X58.XXXA Exposure to other specified factors, initial encounter; Y93.01 Activity, walking, marching and hiking; Y99.8 Other external cause status; Y92.89 Other specified places as the place of occurrence of the external cause
CPT/HCPCS: 29505; 73564; 96372; 99284; J2270

== ENCOUNTER 2017-03-16 18:36 | Emergency (ER) | payer OTHER ==
[~2017-03-16] VITALS: Ht 175.3 cm; Wt 93.1 kg
[2017-03-16 18:58] VITALS: BP 137/81
[2017-03-16] MEDS ORDERED: KETOROLAC 60 MG/2 ML VIAL. IM ONE (19:00)
[2017-03-16] MEDS ORDERED: HYDROmorphone PF 2 MG/ML VIAL IM ONE (19:00)
[2017-03-16] MEDS ORDERED: NAPR275T59 PO (19:02)
[2017-03-16] MEDS ORDERED: DIAZ5TAB PO (19:02)
--- NOTE | 2017-03-16 19:02 | PHYS DOC ---
Past History Past Medical History: Anxiety, Bipolar, Depression Additional Past Medical Histor: chronic shoulder pain bipolar disorder Past Surgical History: No Surgical History Smoking: Cigarettes Alcohol Use: None Drug Use: None Adult General Chief Complaint Chief Complaint: [facility] HPI Patient is a pleasant 46-year-old male with history of chronic shoulder disorder secondary to a cervical radiculopathy chronic shoulder pain for which he is presently undergoing physical therapy and cortisone injections by a pain management physician for last year and half. He is gotten his third course of shot in the last several weeks he believes that he did not help. He is out of medications and looking for symptomatically treatment at this time. He has follow-up on Monday with his physician to treat his symptoms he believes he cannot make it to the week and without pain medications. Patient has a remote history of narcotic abuse, overdose causing liver injury secondary to acetaminophen toxicity. Patient is not expressing any withdrawal symptoms of nausea, vomiting, diarrhea, musculoskeletal weakness or tremors headaches or other withdrawal symptoms. His pain is a 5 out of 10 when he remains still a 10 of 10 with movements. He has tingling and numbness that goes over his lateral shoulder to his pinky and ring finger there is nothing new about these symptoms , patient denies any chest pain, shortness breath or other symptoms. Patient expressed. This is not changed from his prior events he is just looking for symptomatically treatment. He denies any headache or new symptoms he further denies any trauma fevers chills or URI symptoms. Review of Systems Review of Systems Constitutional: Denies fever or chills [] Eyes: Denies change in visual acuity, redness, or eye pain [] HENT: Denies nasal congestion or sore throat [] Respiratory: Denies cough or shortness of breath [] Cardiovascular: No additional information not addressed in HPI [] GI: Denies abdominal pain, nausea, vomiting, bloody stools or diarrhea [] : Denies dysuria or hematuria [] Musculoskeletal: This patient complains of continued neck pain and shoulder pain is chronic in nature Integument: Denies rash or skin lesions [] Neurologic: Denies headache, focal weakness he does have tingling and numbness in his left hand is not new Endocrine: Denies polyuria or polydipsia [] Allergies Allergies Allergies Coded Allergies Type Severity Reaction Last Updated Verified acetylcysteine Allergy Intermediate 02/19/17 Yes haloperidol Allergy Intermediate 02/19/17 Yes Physical Exam Physical Exam Vital signs recorded on the chart for borderline Hypertension otherwise normal Constitutional: Well developed, well nourished, no acute distress, non-toxic appearance. [] HENT: Normocephalic, atraumatic, bilateral external ears normal, oropharynx moist, no oral exudates, nose normal. [] Eyes: PERRLA, EOMI, conjunctiva normal, no discharge. [] Neck: Normal range of motion, no tenderness, supple, no stridor. [] Cardiovascular:Heart rate regular rhythm, no murmur [] Lungs & Thorax: Bilateral breath sounds clear to auscultation [] Skin: Warm, dry, no erythema, no rash. [] Back: Patient has tenderness to palpation of the lateral aspect of the neck. Extremities: no cyanosis, no clubbing, ROM intact, no edema. [] Neurologic: Alert and oriented X 3, normal motor function, no focal deficits noted noted and strength.. [] Psychologic: Patient seems very anxious but his judgment is normal EKG EKG [] Radiology/Procedures Radiology/Procedures [] Course & Med Decision Making Course & Med Decision Making Pertinent Labs and Imaging studies reviewed. (See chart for details) he presents with chronic arm pain no new symptoms, no new headache or focal neurologic deficits. Patient has follow-up on Monday already planned looking for symptom treatment. My plan is to treat with Toradol and a dose of Dilaudid discharged home with Naprosyn and Valium with PCP follow-up tomorrow [] Dragon Disclaimer Dragon Disclaimer This chart was dictated in whole or in part using Voice Recognition software in a busy, high-work load, and often noisy Emergency Department environment. It may contain unintended and wholly unrecognized errors or omissions. Departure Departure: Impression: Primary Impression: Paresthesia of left arm Additional Impressions: Shoulder pain, left Chronic shoulder pain Disposition: HOME, SELF-CARE Condition: STABLE Referrals: ADITYA JIMENEZ (PCP) Patient Instructions: Chronic Back Pain, Chronic Pain, Chronic Pain Management , Shoulder Pain Additional Instructions: My discharge plan Follow up: In addition patient is asked to followup with their primary doctor, within a week for followup examination and to address patient's ongoing medical conditions. Patient is advised that in the Emergency Department primary complaints are addressed and only in light of known signs and symptoms. Patient should return immediately to the emergency department if new signs and symptoms develop or patient's condition worsens in any way. At time of discharge patient was in stable condition and had verbalized understanding of the discharge instructions. I'm concerned with this patient's presentation that they may be addicted to narcotic medications. Their behavior could be described as drug seeking in nature and I'm concerned that if I do not explain to them my concerns and we have a discussion about how to treat this in the future we will continue to see them using these medications and possibly dangerous manners. We talked about overutilization that the medications associated with narcotics to include acetaminophen when taking large doses can cause liver injury that is permanent nature. We discussed a treatment plan and need for follow-up with a painter helper to talk about alternatives to narcotic medications. We also talked about possible psychiatric intervention to help him cope with her chronic pain condition. We also discussed possible social work involvement or addiction treatment involvement to help address the possible withdrawal symptoms that may be experiencing which is causing the further use narcotics in this way. I will take the time to provide them addiction clinic information in the follow- up if they choose to accept my help. Scripts Diazepam (VALIUM) 5 Mg Tablet 5 MG PO TID for 5 Days, #15 TAB Please use one tablet every 8 hours as needed for muscle spasms. Do not drink alcohol or use other narcotics with this medication. Prov: DIXON ERNST MD 03/16/17 Naproxen Sodium (NAPROXEN SODIUM) 275 Mg Tablet 275 MG PO BID for 7 Days, #14 TAB Prov: DIXON ERNST MD 03/16/17 Problem Qualifiers DIXON ERNST MD Mar 16, 2017 19:02
== END 2017-03-16 19:38 | disposition home or self-care (01) ==
LOC: ER 18:36
DX: G89.29 Other chronic pain (principal); M25.512 Pain in left shoulder; R20.0 Anesthesia of skin; F17.210 Nicotine dependence, cigarettes, uncomplicated; Z88.8 Allergy status to other drugs, medicaments and biological substances
CPT/HCPCS: 96372; 99284; J1170; J1885

== ENCOUNTER 2017-10-30 06:25 | Emergency (ER) | payer OTHER ==
[~2017-10-30] VITALS: Ht 175.3 cm; Wt 83.9 kg
[~2017-10-30 06:25] MED LIST changes: +DIAZ5TAB PO; +NAPR275T59 PO
[2017-10-30] MEDS ORDERED: CYCL-331 PO (06:50)
[2017-10-30] MEDS ORDERED: CYCLOBENZAPRINE 10 MG TABLET. PO ONE (07:00)
--- NOTE | 2017-10-30 07:00 | ED.ADGEN ---
Past History Past Medical History: High Cholesterol Additional Past Medical Histor: chronic shoulder pain bipolar disorder Past Surgical History: Appendectomy, Tonsillectomy Smoking: Cigarettes Alcohol Use: None Drug Use: None Adult General Chief Complaint Chief Complaint Low back pain [facility] HPI Patient is a 46-year-old male presents with nontraumatic low back pain. Patient' s bilateral nonradiating. It is tired is all and rated moderate to severe. It is worse with palpation, ambulation and movement. Patient's been taking ibuprofen with limited relief. Denies falls or injuries. No urinary frequency urgency. Patient also reports fatigue and exhaustion from work outdoors. Patient works Monday through Monday as scheduled to return later today. No nausea vomiting, no diarrhea, no history of diarrhea. No other acute symptoms or complaints. Patient has not been evaluated for any this current symptoms prior to todays visit.[] Review of Systems Review of Systems ROS as per HPI All other systems were reviewed and found to be within normal limits, except as documented in this note. Current Medications Current Medications Current Medications Medications (Trade) Dose Ordered Sig/Umer Start Time Stop Time Status Last Admin Dose Admin Cyclobenzaprine HCl (Flexeril) 10 mg 1X ONCE 10/30/17 07:00 10/30/17 07:01 DC 10/30/17 07:02 10 MG Allergies Allergies Allergies Coded Allergies Type Severity Reaction Last Updated Verified acetylcysteine Allergy Intermediate 02/19/17 Yes haloperidol Allergy Intermediate 02/19/17 Yes Physical Exam Physical Exam Constitutional: Dishevelled, non-toxic appearance. [] HENT: Normocephalic, atraumatic, bilateral external ears normal, oropharynx moist, no oral exudates, nose normal. [] Eyes: PERRL. Pupils 2 mm.[] Neck: Normal range of motion. [] Cardiovascular:Heart rate regular rhythm, no murmur [] Lungs & Thorax: Bilateral breath sounds clear to auscultation [] Abdomen: Bowel sounds normal, soft, no tenderness. [] Skin: Warm, dry. [] Back: No midline tenderness, no CVA tenderness. Diffuse low back pain, reproduces with trunk rotation and flexion. Negative straight leg raising test.[ ] Extremities: No tenderness. [] Neurologic: Alert and oriented X 3, lower extremity, normal motor function, normal sensory function, no focal deficits noted. [] Psychologic: Affect normal. [] Current Patient Data Vital Signs Vital Signs Date Time Temp Pulse Resp B/P (MAP) Pulse Ox O2 Delivery O2 Flow Rate FiO2 10/30/17 07:08 65 16 126/76 (93) 98 Room Air 10/30/17 06:37 97.4 Lab Results Laboratory Tests Test 10/30/17 07:05 Glucose (Fingerstick) 97 mg/dL (70-99) EKG EKG [] Radiology/Procedures Radiology/Procedures [] Course & Med Decision Making Course & Med Decision Making Pertinent Labs and Imaging studies reviewed. (See chart for details) [Reproducible low back pain without neurologic deficits. Flexeril given. Blood sugar checked. Patient instructed follow-up with PCP in 2 hours once office opens. Courtesy work note for today provided. ] Final Impression Final Impression [1. Low back pain 2. fatigue] Dragon Disclaimer Dragon Disclaimer This electronic medical record was generated, in whole or in part, using a voice recognition dictation system. AWAIS HARRELL DO Oct 30, 2017 07:00
[2017-10-30 07:08] VITALS: BP 126/76
== END 2017-10-30 07:08 | disposition home or self-care (01) ==
LOC: ER 06:25
DX: M54.5 Low back pain (principal); R53.83 Other fatigue; E78.00 Pure hypercholesterolemia, unspecified; G89.29 Other chronic pain; F17.210 Nicotine dependence, cigarettes, uncomplicated; Z88.8 Allergy status to other drugs, medicaments and biological substances
CPT/HCPCS: 82947; 99283

== ENCOUNTER 2018-01-17 04:30 | Emergency (ER) | payer BC, OTHER ==
[~2018-01-17] VITALS: Ht 177.8 cm; Wt 56.5 kg
[~2018-01-17 04:30] MED LIST changes: +CYCL-331 PO
[2018-01-17] MEDS ORDERED: predniSONE 20 MG TABLET PO ONE (04:45)
[2018-01-17] MEDS ORDERED: IPRATRPIUM/ALBUTEROL 0.5/2.5MG 3 ML NEBU. NEB ONE (04:45)
--- NOTE | 2018-01-17 04:47 | ED.ADGEN ---
Past History Past Medical History: High Cholesterol Additional Past Medical Histor: chronic shoulder pain bipolar disorder (BRIAN WILLIAM MD) Past Surgical History: Appendectomy, Tonsillectomy (BIRAN WILLIAM MD) Smoking: Cigarettes Alcohol Use: None Drug Use: None (BRIAN WILLIAM MD) Adult General Chief Complaint Chief Complaint Productive ough and chest pain (BRIAN WILLIAM MD) HPI HPI Patient has had constant substernal chest discomfort for the past week worse with coughing. Pain is non radiating. His cough has gotten progressively worse productive of green sputum. He denies any fevers. He smokes a pack of cigars per day (BRIAN WILLIAM MD) Review of Systems Review of Systems Constitutional: Denies fever or chills Eyes: Denies change in visual acuity, redness, or eye pain HENT: Denies nasal congestion or sore throat Respiratory: With productive cough green sputum with shortness of breath Cardiovascular: with substernal chest pain GI: Denies abdominal pain, nausea, vomiting, bloody stools or diarrhea : Denies dysuria or hematuria Musculoskeletal: Denies back pain or joint pain Integument: Denies rash or skin lesions Neurologic: Denies headache, focal weakness or sensory changes Endocrine: Denies polyuria or polydipsia All other systems were reviewed and found to be within normal limits, except as documented in this note. (BRIAN WILLIAM MD) Current Medications Current Medications Current Medications Medications (Trade) Dose Ordered Sig/Umer Start Time Stop Time Status Last Admin Dose Admin Albuterol Sulfate (Ventolin) 5 mg 1X ONCE 01/17/18 05:00 01/17/18 05:31 DC Albuterol/ Ipratropium (Duoneb) 3 ml 1X ONCE 01/17/18 04:45 01/17/18 05:31 DC 01/17/18 04:40 3 ML Doxycycline Hyclate (Vibra-Tab) 100 mg 1X ONCE 01/17/18 06:15 01/17/18 06:16 DC 01/17/18 06:38 100 MG Info (Do NOT chart on this entry -- for MONITORING) 1 each PRN DAILY PRN 01/17/18 06:15 01/17/18 09:39 DC Iohexol (Omnipaque 300 Mg/ml) 75 ml 1X ONCE 01/17/18 06:15 01/17/18 06:16 DC 01/17/18 06:06 75 ML Prednisone (Prednisone) 60 mg 1X ONCE 01/17/18 04:45 01/17/18 05:31 DC 01/17/18 04:53 60 MG (ALBA SHARP MD) Allergies Allergies Allergies Coded Allergies Type Severity Reaction Last Updated Verified acetylcysteine Allergy Intermediate 01/17/18 Yes haloperidol Allergy Intermediate 01/17/18 Yes (ALBA SHARP MD) Physical Exam Physical Exam Constitutional: Well developed, well nourished, no acute distress, non-toxic appearance. With frequent coughing HENT: Normocephalic, atraumatic, bilateral external ears normal, oropharynx moist, no oral exudates, nose normal. Eyes: PERRLA, EOMI, conjunctiva normal, no discharge. Neck: Normal range of motion, no tenderness, supple, no stridor. Cardiovascular:Heart rate regular rhythm, no murmur Lungs & Thorax: with bilateral wheezing without prolonged expiratory phase Abdomen: Bowel sounds normal, soft, no tenderness, no masses, no pulsatile masses. Skin: Warm, dry, no erythema, no rash. Back: No tenderness, no CVA tenderness. Extremities: No tenderness, no cyanosis, no clubbing, ROM intact, no edema. Neurologic: Alert and oriented X 3, normal motor function, normal sensory function, no focal deficits noted. Psychologic: Affect normal, judgement normal, mood normal. (BRIAN WILLIAM MD) Current Patient Data Vital Signs Vital Signs Date Time Temp Pulse Resp B/P (MAP) Pulse Ox O2 Delivery O2 Flow Rate FiO2 01/17/18 08:30 62 18 112/54 (73) 96 01/17/18 04:55 Room Air 01/17/18 04:32 98.0 (ALBA SHARP MD) Lab Results Laboratory Tests Test 01/17/18 05:20 01/17/18 08:28 White Blood Count 8.8 x10^3/uL (4.0-11.0) Red Blood Count 4.25 x10^6/uL (4.30-5.70) L Hemoglobin 14.4 g/dL (13.0-17.5) Hematocrit 40.4 % (39.0-53.0) Mean Corpuscular Volume 95 fL (79-100) Mean Corpuscular Hemoglobin 34 pg (25-35) Mean Corpuscular Hemoglobin Concent 36 g/dL (31-37) Red Cell Distribution Width 13.6 % (11.5-14.5) Platelet Count 192 x10^3/uL (140-400) Neutrophils (%) (Auto) 67 % (31-73) Lymphocytes (%) (Auto) 25 % (24-48) Monocytes (%) (Auto) 6 % (0-9) Eosinophils (%) (Auto) 2 % (0-3) Basophils (%) (Auto) 0 % (0-3) Neutrophils # (Auto) 5.9 x10^3uL (1.8-7.7) Lymphocytes # (Auto) 2.2 x10^3/uL (1.0-4.8) Monocytes # (Auto) 0.5 x10^3/uL (0.0-1.1) Eosinophils # (Auto) 0.2 x10^3/uL (0.0-0.7) Basophils # (Auto) 0.0 x10^3/uL (0.0-0.2) D-Dimer (Sarah) 0.87 mg/L (0.00-0.50) H Sodium Level 141 mmol/L (136-145) Potassium Level 3.8 mmol/L (3.5-5.1) Chloride Level 105 mmol/L (98-107) Carbon Dioxide Level 29 mmol/L (21-32) Anion Gap 7 (6-14) Blood Urea Nitrogen 17 mg/dL (8-26) Creatinine 1.1 mg/dL (0.7-1.3) Estimated GFR (Cockcroft-Gault) 72.1 Glucose Level 103 mg/dL (70-99) H Calcium Level 8.5 mg/dL (8.5-10.1) Troponin I Quantitative < 0.017 ng/mL (0-0.055) < 0.017 ng/mL (0-0.055) (ALBA SHARP MD) Lab Results Laboratory Tests Test 01/17/18 05:20 White Blood Count 8.8 x10^3/uL (4.0-11.0) Red Blood Count 4.25 x10^6/uL (4.30-5.70) L Hemoglobin 14.4 g/dL (13.0-17.5) Hematocrit 40.4 % (39.0-53.0) Mean Corpuscular Volume 95 fL (79-100) Mean Corpuscular Hemoglobin 34 pg (25-35) Mean Corpuscular Hemoglobin Concent 36 g/dL (31-37) Red Cell Distribution Width 13.6 % (11.5-14.5) Platelet Count 192 x10^3/uL (140-400) Neutrophils (%) (Auto) 67 % (31-73) Lymphocytes (%) (Auto) 25 % (24-48) Monocytes (%) (Auto) 6 % (0-9) Eosinophils (%) (Auto) 2 % (0-3) Basophils (%) (Auto) 0 % (0-3) Neutrophils # (Auto) 5.9 x10^3uL (1.8-7.7) Lymphocytes # (Auto) 2.2 x10^3/uL (1.0-4.8) Monocytes # (Auto) 0.5 x10^3/uL (0.0-1.1) Eosinophils # (Auto) 0.2 x10^3/uL (0.0-0.7) Basophils # (Auto) 0.0 x10^3/uL (0.0-0.2) D-Dimer (Sarah) 0.87 mg/L (0.00-0.50) H Sodium Level 141 mmol/L (136-145) Potassium Level 3.8 mmol/L (3.5-5.1) Chloride Level 105 mmol/L (98-107) Carbon Dioxide Level 29 mmol/L (21-32) Anion Gap 7 (6-14) Blood Urea Nitrogen 17 mg/dL (8-26) Creatinine 1.1 mg/dL (0.7-1.3) Estimated GFR (Cockcroft-Gault) 72.1 Glucose Level 103 mg/dL (70-99) H Calcium Level 8.5 mg/dL (8.5-10.1) Troponin I Quantitative < 0.017 ng/mL (0-0.055) (BRIAN WILLIAM MD) EKG EKG 04:52 ECG NSR @ 62 without acute changes with normal ST-T wave changes (BRIAN WILLIAM MD) Radiology/Procedures Radiology/Procedures [address] [place] [address] IMAGING REPORT Signed PATIENT: SAIRA CLAY ACCOUNT: [id number] : 1970 LOCATION: ER AGE: 47 SEX: M EXAM STATUS: REG ER ORD. PHYSICIAN: BRIAN WILLIAM MD REASON: cough PROCEDURE: CHEST PA & LATERAL CHEST PA LATERAL History: cough, shortness of breath, chest discomfort, smoker Comparison: AP chest September 18, 2016. CT abdomen and pelvis with contrast, October 12, 2016. Findings: The cardiomediastinal silhouette is normal. Interstitial markings are borderline prominent. No focal consolidation. No pleural effusion or pneumothorax is seen. Old mild compression fracture of the T10 vertebral body. Old right clavicle fracture. IMPRESSION: No acute cardiopulmonary process. Electronically signed by: Fabrice Ponce MD (01/17/2018 5:30 AM) [facility] DICTATED AND SIGNED BY: FABRICE PONCE MD DATE: 01/17/18520 CC: BRIAN WILLIAM MD; ADITYA JIMENEZ (BRIAN WILLIAM MD) Course & Med Decision Making Course & Med Decision Making Emergency department course Patient presents with progressive productive cough and chest pain DDx-pneumonia, COPD exacerbation, bronchitis, asthma, PE, acute coronary syndrome, CHF Patient was stable in the emergency department improved after DuoNeb albuterol and prednisone. He had decreased wheezing on exam. Chest x-ray showed no evidence of pneumonia. ECG and troponin showed no evidence of ACS. D-dimer elevated CTA chest ordered. Heart score=3 06:[address] Sharp. CTA chest pending. (BRIAN WILLIAM MD) Final Impression Final Impression [] (BRIAN WILLIAM MD) Dragon Disclaimer Dragon Disclaimer This electronic medical record was generated, in whole or in part, using a voice recognition dictation system. (BRIAN WILLIAM MD) Departure Departure: Scripts Doxycycline Hyclate (DOXYCYCLINE HYCLATE) 100 Mg Tablet 1 TAB PO BID, #20 TAB Prov: ALBA SHARP MD 01/17/18 Prednisone (PREDNISONE) 50 Mg Tablet 1 TAB PO DAILY, #4 TAB You received this medication in the emergency room today. You will starting your next dose tomorrow. Prov: ALBA SHARP MD 01/17/18 Assessment/Plan Assessment/Plan 47-year-old gentleman presenting to the emergency department today with cough and congestion with green sputum production for about a week. He denies any fevers at home. The patient was seen by previous provider. sign out at 6 AM with plans to follow-up on CT angiogram along with repeat EKG and troponin. The patient has had a pain intermittently through his chest. On reexamining the patient with the other provider at 6 AM the patients chest pain is resolved. He has risk factors that include smoking and high cholesterol. He reports having a negative stress test a few years ago. He had an echocardiogram at that time. CT angiogram is negative for pulmonary embolism. Chronic emphysema changes noted. I sat down with the patient and explained the results of the CT scan along with explaining that he will need a repeat CT scan as directed in the report. He will get this through his primary care physician. We will initiate abx and steroid for wheezing and productive cough. I discussed with the patient about the limitations of cardiac evaluation in the ED about the limitations of evaluating for acute coronary syndrome. We discussed the risks involved in missed diagnosis of acute coronary syndrome including or permanent debility. I offered overnight observation for further formal cardiac evaluation to rule out acute coronary syndrome with cardiac consultation. The patient demonstrates verbal understanding of risk of , lost wages, emotional grief of family, and disability, as well as the risks of missed diagnosis, the patient declined further cardiac evaluation at this time. The patient has medical decision making capacity, and given opportunity to ask questions about the diagnosis and recommended plan of care. I explained to the patient the importance of close follow-up, and returning to the emergency department for new or worsening symptoms, or if the patient is agreeable to undergo further cardiac evaluation. (ALBA SHARP MD) BRIAN WILLIAM MD Jan 17, 2018 04:47 ALBA SHARP MD Jan 17, 2018 12:17
--- NOTE | 2018-01-17 04:53 | EKG ---
[address] [address] Test Date: 2018-01-17 Test Time: 04:50:24 Pat Name: SAIRA CLAY Department: Room: Gender: M [employer]: : 1970 Requested By: BRIAN WILLIAM Order Number: [id number] Reading MD: Billy Marie Measurements Intervals [place] Rate: 62 P: 21 GA: 160 QRS: 67 QRSD: 88 T: 65 QT: 414 QTc: 422 Interpretive Statements SINUS RHYTHM Electronically Signed On 01-19-2018 12:57:55 CDT by Billy Marie
[2018-01-17] MEDS ORDERED: ALBUTEROL SULFATE 2.5 MG/3 ML NEBU. NEB ONE (05:00)
--- NOTE | 2018-01-17 05:33 | RAD ---
CHEST PA LATERAL History: cough, shortness of breath, chest discomfort, smoker Comparison: AP chest September 18, 2016. CT abdomen and pelvis with contrast, October 12, 2016. Findings: The cardiomediastinal silhouette is normal. Interstitial markings are borderline prominent. No focal consolidation. No pleural effusion or pneumothorax is seen. Old mild compression fracture of the T10 vertebral body. Old right clavicle fracture. IMPRESSION: No acute cardiopulmonary process. Electronically signed by: Ramana Ponce MD (01/17/2018 5:30 AM) [facility]
[2018-01-17 05:39] LABS: BASO % 0 % (0-3); EOS # 0.2 x10^3/uL (0.0-0.7); EOS % 2 % (0-3); HEMATOCRIT 40.4 % (39.0-53.0); HEMOGLOBIN 14.4 g/dL (13.0-17.5); LYMPH # 2.2 x10^3/uL (1.0-4.8); LYMPH % 25 % (24-48); MEAN CORPUSCULAR HEMOGLOBIN 34 pg (25-35); MEAN CORPUSCULAR HGB CONC 36 g/dL (31-37); MEAN CORPUSCULAR VOLUME 95 fL (79-100); MONO # 0.5 x10^3/uL (0.0-1.1); MONO % 6 % (0-9); NEUT # 5.9 x10^3uL (1.8-7.7); NEUT % 67 % (31-73); PLATELET COUNT 192 x10^3/uL (140-400); RED BLOOD COUNT 4.25 x10^6/uL (4.30-5.70); RED CELL DISTRIBUTION WIDTH 13.6 % (11.5-14.5); WHITE BLOOD COUNT 8.8 x10^3/uL (4.0-11.0)
[2018-01-17 05:45] LABS: CALCIUM 8.5 mg/dL (8.5-10.1); CREATININE 1.1 mg/dL (0.7-1.3); GFR 72.1; POTASSIUM 3.8 mmol/L (3.5-5.1)
[2018-01-17] MEDS ORDERED: DOXYCYCLINE HYCLATE 100 MG TABLET PO ONE (06:15)
[2018-01-17] MEDS ORDERED: CONTRAST GIVEN MC PRN (06:15)
[2018-01-17] MEDS ORDERED: IOHEXOL 300 MG/ML 75 ML VIAL. IV ONE (06:15)
--- NOTE | 2018-01-17 06:34 | RAD ---
PQRS Compliance Statement: One or more of the following individualized dose reduction techniques were utilized for this examination: 1. Automated exposure control 2. Adjustment of the mA and/or kV according to patient size 3. Use of iterative reconstruction technique CT CHEST WITH CONTRAST, PULMONARY ANGIOGRAM History: CHEST PAIN, SHORTNESS OF BREATH, COUGH, ELEVATED DDIMER
SMOKER Comparison: CT abdomen and pelvis with contrast, October 12, 2016. Technique: Helical CT of the chest was performed after the administration of 75 cc Omnipaque 300 intravenous contrast according to PE protocol. Axial and coronal reconstructions were obtained. 3-D MIP images were constructed to better evaluate the pulmonary arteries. Findings: Pulmonary arteries are adequately opacified. There is no evidence of pulmonary embolism. There is a subcarinal lymph node measuring 1.4 cm. There is bilateral hilar adenopathy. There are paratracheal lymph nodes that are upper limits of normal in size. Pulmonary trunk diameter is upper limits of normal. Cardiac size normal, no pericardial effusion. There is no pleural effusion. There is upper lobe centrilobular and paraseptal emphysema. 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 There are moderate bilateral lower lobe dependent groundglass opacities that are probably due to atelectasis. There are a few tiny calcified granulomas in the lungs. Visualized upper abdomen is unremarkable. Stable mild compression fracture of the T10 vertebral body. IMPRESSION: 1. There is no CT evidence of pulmonary embolus. 2. Bilateral hilar adenopathy. Recommend CT chest with contrast follow-up in 3 months to reevaluate. 3. There are moderate bilateral lower lobe groundglass opacities that are probably atelectasis. 4. Upper lobe centrilobular and paraseptal emphysema. Electronically signed by: Ramana Ponce MD (01/17/2018 6:31 AM) [facility]
[2018-01-17 08:30] VITALS: BP 112/54
[2018-01-17] MEDS ORDERED: DOXY100T PO (09:23)
[2018-01-17] MEDS ORDERED: PRED50TA PO (09:23)
--- NOTE | 2018-01-17 12:31 | EKG ---
[address] [address] Test Date: 2018-01-17 Test Time: 08:22:04 Pat Name: SAIRA CLAY Department: Room: Gender: M [employer]: : 1970 Requested By: ALBA SHARP Order Number: [id number] Reading MD: Ronal Strong MD Measurements Intervals [place] Rate: 59 P: 29 [place]: 160 QRS: 52 QRSD: 84 T: 60 QT: 418 QTc: 418 Interpretive Statements SINUS RHYTHM Electronically Signed On 01-17-2018 12:40:50 CDT by Ronal Strong MD
== END 2018-01-17 09:35 | disposition home or self-care (01) ==
LOC: ER 04:30
DX: R07.2 Precordial pain (principal); R09.81 Nasal congestion; E78.00 Pure hypercholesterolemia, unspecified; F17.210 Nicotine dependence, cigarettes, uncomplicated; Z88.8 Allergy status to other drugs, medicaments and biological substances
CPT/HCPCS: 36415; 71046; 71275; 80048; 84484; 85025; 85379; 93005; 94640; 99285; J7512; J7620; Q9967

== ENCOUNTER 2018-11-18 21:34 | Emergency (ER) | payer BC, OTHER ==
[~2018-11-18] VITALS: Ht 175.3 cm; Wt 81.8 kg
[~2018-11-18 21:34] MED LIST changes: -ALBU18HF IH; +ALBU2.5V8 IH; +DOXY100T PO; +PRED50TA PO
--- NOTE | 2018-11-18 21:43 | ED.ADGEN ---
Past History Past Medical History: Bipolar, Depression, Schizophrenia, UTI Additional Past Medical Histor: chronic shoulder pain bipolar disorder Past Surgical History: Appendectomy, Tonsillectomy Smoking: Cigarettes Alcohol Use: Rarely Drug Use: None Adult General Chief Complaint Chief Complaint ".. I just want some help... I off some my meds.. I know if I go too long ... I will do something.. I have Bipolar... and have some thoughts of suicide.. no plan... but I know.. I can get to that point... I was in [facility] 6 weeks ago.. and I was at [facility] maybe 30 min ago.. but all they did was throw some Rx cards at me... and tell me figure out some way to get back on my meds.. I got a UTI.. and have not been able to get any antibiotics... I am on Latudia and Depakote... and I am to be on some other meds that I cannot afford them... I do go to the counseling center... My insurance was dropped 6 weeks ago... Because [employer] said I had the show employment history and insurance need.... [facility] has the records... But they cannot fax the records or send them to [facility]. .. because of HIPPA.. they can even see them in the computer .. but they need an actual copy... We have no food in the house.. we have no money... I usually see Dr. Adam.. [facility] at [facility] says I am not bad enough to come back in... yet... The last time I got to point where I planned to jump off the [place]... 6 weeks ago.... I just can't get any fucking help.... HPI HPI Patient is a 48 year old male who presents with above hx and complaints depression, suicidal ideation, schizophrenia, and inability to obtain his maintenance psychiatric meds. Patient recently at [facility]. Was unable to be accepted for care at [facility] because he had no acute suicide plan. Recently he was admitted at [facility] approximately 6 weeks ago. Currently his state medical insurance has been denied . Patient does admit to occasional marijuana use. Patient denies other drug use. No current homicidal ideations. Does have suicidal ideations but no current active plan. Patient does have history of previous severe suicide attempt which resulted in admission to ICU unit for drug overdose and respiratory failure. . Patient recently attempted to get care at [facility] but they cannot schedule him an appointment for 3 weeks. Patient has been following at [facility] [place] . Patient has a history of acute respiratory failure due to drug overdose, history of ADD, anxiety, asthma, bipolar, depression, GERD, hyperlipidemia, chronic insomnia and posttraumatic stress disorder. There is history of mental illness with father. Patient denies any current legal problems. Does have reported significant financial issues and has been unable to pay for his maintenance meds. Patient denies any current hallucinations, but has had voices that tell to get angry and sometimes to hurt himself. Patient denies any specific suicidal plan. Review of Systems Review of Systems Constitutional: Denies fever or chills [] Eyes: Denies change in visual acuity, redness, or eye pain [] HENT: Denies nasal congestion or sore throat [] Respiratory: Denies cough or shortness of breath [] Cardiovascular: No additional information not addressed in HPI [] GI: Denies abdominal pain, nausea, vomiting, bloody stools or diarrhea [] : Denies dysuria or hematuria [] Musculoskeletal: Denies back pain or joint pain [] Integument: Denies rash or skin lesions [] Neurologic: Denies headache, focal weakness or sensory changes [] Endocrine: Denies polyuria or polydipsia [] All other systems were reviewed and found to be within normal limits, except as documented in this note. Family History Family History Father has mental illness Current Medications Current Medications Current Medications Medications (Trade) Dose Ordered Sig/Umer Start Time Stop Time Status Last Admin Dose Admin Folic Acid (FOLIC ACID SYRINGE for ER) 5 mg STK-MED ONCE 11/18/18 22:38 11/18/18 22:39 DC Ibuprofen (Motrin) 400 mg 1X ONCE 11/18/18 22:45 11/18/18 22:49 DC 11/18/18 22:46 400 MG Lactated Ringer's 1,000 ml @ 1,000 mls/hr Q1H 11/18/18 22:30 11/18/18 23:29 DC 11/19/18 00:23 1,000 MLS/HR Lorazepam (Ativan) 1 mg STK-MED ONCE 11/19/18 01:45 11/19/18 01:49 DC Multivitamins/ Minerals (Infuvite Adult) 10 ml STK-MED ONCE 11/18/18 22:38 11/18/18 22:39 DC Multivitamins/ Minerals 10 ml/ Folic Acid 1 mg/ Thiamine HCl 100 mg/Lactated Ringer's 1,011.2 ml @ 1,011.2 mls/hr 1X ONCE 11/18/18 22:30 11/18/18 23:29 DC 11/18/18 22:30 1,011.2 MLS/HR Nicotine (Nicoderm Cq 21mg) 1 patch 1X ONCE 11/19/18 01:30 11/19/18 01:49 DC Olanzapine (ZyPREXA) 2.5 mg STK-MED ONCE 11/19/18 01:45 11/19/18 01:49 DC Thiamine HCl (Thiamine Vial) 200 mg STK-MED ONCE 11/18/18 22:37 11/18/18 22:38 DC Valproic Acid (Depakene) 750 mg 1X ONCE 11/19/18 00:00 11/19/18 00:01 DC 11/19/18 00:31 750 MG Allergies Allergies Allergies Coded Allergies Type Severity Reaction Last Updated Verified acetylcysteine Allergy Intermediate 11/18/18 Yes haloperidol Allergy Intermediate 11/18/18 Yes Physical Exam Physical Exam Constitutional: Well developed, well nourished, in acute emotional distress, non-toxic appearance. [] HENT: Normocephalic, atraumatic, bilateral external ears normal, oropharynx moist, no oral exudates, nose normal. [] Eyes: PERRLA, EOMI, conjunctiva normal, no discharge. [] Neck: Normal range of motion, no tenderness, supple, no stridor. [] Cardiovascular:Bradycardia Heart rate regular rhythm, no murmur [] Lungs & Thorax: Bilateral breath sounds equal with scattered wheezes on auscultation [] Abdomen: Bowel sounds decreased, soft, no tenderness, no masses, no pulsatile masses. [] Skin: Warm, dry, no erythema, no rash. [] Back: No tenderness, no CVA tenderness. [] Extremities: No tenderness, no cyanosis, no clubbing, ROM intact, no edema. Cigarette burn Lt. arm. (old). Neurologic: Alert and oriented X 3, normal motor function, normal sensory function, no gross focal deficits noted. []DTR's 2+ patellar and brachial. Psychologic: Affect anxious, judgement -appears to have insight to psych issues, mood depressed. Current Patient Data Lab Results Laboratory Tests Test 11/18/18 22:00 11/18/18 22:16 Urine Collection Type Void Urine Color Yellow Urine Clarity Clear Urine pH 7.0 Urine Specific [place] 1.010 Urine Protein Neg (NEG-TRACE) Urine Glucose (UA) Neg mg/dL (NEG) Urine Ketones (Stick) Neg mg/dL (NEG) Urine Blood Neg (NEG) Urine Nitrite Neg (NEG) Urine Bilirubin Neg (NEG) Urine Urobilinogen Dipstick 0.2 mg/dL (0.2 mg/dL) Urine Leukocyte Esterase Neg (NEG) Urine RBC 0 /HPF (0-2) Urine WBC Occ /HPF (0-4) Urine Squamous Epithelial Cells Occ /LPF Urine Bacteria 0 /HPF (0-FEW) Urine Opiates Screen Neg (NEG) Urine Methadone Screen Neg (NEG) Urine Barbiturates Neg (NEG) Urine Phencyclidine Screen Neg (NEG) Urine Amphetamine/Methamphetamine Neg (NEG) Urine Benzodiazepines Screen Neg (NEG) Urine Cocaine Screen Neg (NEG) Urine Cannabinoids Screen Pos (NEG) Urine Ethyl Alcohol Neg (NEG) White Blood Count 11.6 x10^3/uL (4.0-11.0) H Red Blood Count 4.41 x10^6/uL (4.30-5.70) Hemoglobin 14.8 g/dL (13.0-17.5) Hematocrit 42.5 % (39.0-53.0) Mean Corpuscular Volume 96 fL (79-100) Mean Corpuscular Hemoglobin 34 pg (25-35) Mean Corpuscular Hemoglobin Concent 35 g/dL (31-37) Red Cell Distribution Width 14.3 % (11.5-14.5) Platelet Count 215 x10^3/uL (140-400) Neutrophils (%) (Auto) 76 % (31-73) H Lymphocytes (%) (Auto) 17 % (24-48) L Monocytes (%) (Auto) 5 % (0-9) Eosinophils (%) (Auto) 2 % (0-3) Basophils (%) (Auto) 1 % (0-3) Neutrophils # (Auto) 8.8 x10^3uL (1.8-7.7) H Lymphocytes # (Auto) 2.0 x10^3/uL (1.0-4.8) Monocytes # (Auto) 0.6 x10^3/uL (0.0-1.1) Eosinophils # (Auto) 0.2 x10^3/uL (0.0-0.7) Basophils # (Auto) 0.1 x10^3/uL (0.0-0.2) D-Dimer (Sarah) 0.20 mg/L (0.00-0.50) Sodium Level 143 mmol/L (136-145) Potassium Level 3.6 mmol/L (3.5-5.1) Chloride Level 106 mmol/L (98-107) Carbon Dioxide Level 27 mmol/L (21-32) Anion Gap 10 (6-14) Blood Urea Nitrogen 12 mg/dL (8-26) Creatinine 1.0 mg/dL (0.7-1.3) Estimated GFR (Cockcroft-Gault) 80.1 Glucose Level 90 mg/dL (70-99) Calcium Level 8.8 mg/dL (8.5-10.1) Magnesium Level 2.3 mg/dL (1.8-2.4) Total Bilirubin 0.5 mg/dL (0.2-1.0) Direct Bilirubin 0.1 mg/dL (0.0-0.2) Aspartate Amino Transferase (AST) 11 U/L (15-37) L Alanine Aminotransferase (ALT) 16 U/L (16-63) Alkaline Phosphatase 49 U/L (46-116) Creatine Kinase 153 U/L (39-308) Troponin I Quantitative < 0.017 ng/mL (0-0.055) HO-Efw-U-Type Natriuretic Peptide 190 pg/mL (0-124) H Total Protein 5.9 g/dL (6.4-8.2) L Albumin 3.5 g/dL (3.4-5.0) Lipase 59 U/L (73-393) L Salicylates Level 3.5 mg/dL (2.8-20.0) Salicylate Last Dose Date Unknown Salicylate Last Dose Time Unknown Acetaminophen Level < 2 mcg/mL (10-30) L Acetaminophen Last Dose Date Unknown Acetaminophen Last Dose Time Unknown Valproic Acid Level 23 mcg/mL (50-100) L Valproic Acid Last Dose Date Unknown Valproic Acid Last Dose Time Unknown Ethyl Alcohol Level < 10 mg/dL (0-10) EKG EKG My interpretation EKG shows a sinus rhythm at 64. Appears to have bimodal p waves in lead II. No findings of acute STEMI with contralateral changes. Radiology/Procedures Radiology/Procedures [] Course & Med Decision Making Course & Med Decision Making Pertinent Labs and Imaging studies reviewed. (See chart for details) Counseling service refuses to do at psych. eval. because he is not "actively" suicidal. See nursing notes. 0030. Attempt to obtain records from [facility]. Prolonged wait for Tele Psych after Counseling service refused to do an assessment. Eventually pt. elected to go home with his . Pt. stated he would return if started developing a firm suicide plan or compulsion to hurt himself or others. Pt. plans to follow at [facility] Center lst thing this morning. [] Final Impression Final Impression 1. Bipolar - Manic State 2. Suicidal Ideation- No plan 3. Tobacco and Marijuana Use[] 4. Schizophrenia- Schizoaffective disorder 5. Subtherapeutic Depakote Level 23 6. Mild Leukocytosis 11.6 7, Anxiety Disorder. Dragon Disclaimer Dragon Disclaimer This electronic medical record was generated, in whole or in part, using a voice recognition dictation system. Discharge Summary Visit Information Final Diagnosis Problems Medical Problems: (1) Bipolar 1 disorder Status: Acute Brief Hospital Course Allergies Allergies Coded Allergies Type Severity Reaction Last Updated Verified acetylcysteine Allergy Intermediate 11/18/18 Yes haloperidol Allergy Intermediate 11/18/18 Yes Lab Results Laboratory Tests Test 11/18/18 22:00 11/18/18 22:16 Urine Collection Type Void Urine Color Yellow Urine Clarity Clear Urine pH 7.0 Urine Specific [place] 1.010 Urine Protein Neg (NEG-TRACE) Urine Glucose (UA) Neg mg/dL (NEG) Urine Ketones (Stick) Neg mg/dL (NEG) Urine Blood Neg (NEG) Urine Nitrite Neg (NEG) Urine Bilirubin Neg (NEG) Urine Urobilinogen Dipstick 0.2 mg/dL (0.2 mg/dL) Urine Leukocyte Esterase Neg (NEG) Urine RBC 0 /HPF (0-2) Urine WBC Occ /HPF (0-4) Urine Squamous Epithelial Cells Occ /LPF Urine Bacteria 0 /HPF (0-FEW) Urine Opiates Screen Neg (NEG) Urine Methadone Screen Neg (NEG) Urine Barbiturates Neg (NEG) Urine Phencyclidine Screen Neg (NEG) Urine Amphetamine/Methamphetamine Neg (NEG) Urine Benzodiazepines Screen Neg (NEG) Urine Cocaine Screen Neg (NEG) Urine Cannabinoids Screen Pos (NEG) Urine Ethyl Alcohol Neg (NEG) White Blood Count 11.6 x10^3/uL (4.0-11.0) Red Blood Count 4.41 x10^6/uL (4.30-5.70) Hemoglobin 14.8 g/dL (13.0-17.5) Hematocrit 42.5 % (39.0-53.0) Mean Corpuscular Volume 96 fL (79-100) Mean Corpuscular Hemoglobin 34 pg (25-35) Mean Corpuscular Hemoglobin Concent 35 g/dL (31-37) Red Cell Distribution Width 14.3 % (11.5-14.5) Platelet Count 215 x10^3/uL (140-400) Neutrophils (%) (Auto) 76 % (31-73) Lymphocytes (%) (Auto) 17 % (24-48) Monocytes (%) (Auto) 5 % (0-9) Eosinophils (%) (Auto) 2 % (0-3) Basophils (%) (Auto) 1 % (0-3) Neutrophils # (Auto) 8.8 x10^3uL (1.8-7.7) Lymphocytes # (Auto) 2.0 x10^3/uL (1.0-4.8) Monocytes # (Auto) 0.6 x10^3/uL (0.0-1.1) Eosinophils # (Auto) 0.2 x10^3/uL (0.0-0.7) Basophils # (Auto) 0.1 x10^3/uL (0.0-0.2) D-Dimer (Sarah) 0.20 mg/L (0.00-0.50) Sodium Level 143 mmol/L (136-145) Potassium Level 3.6 mmol/L (3.5-5.1) Chloride Level 106 mmol/L (98-107) Carbon Dioxide Level 27 mmol/L (21-32) Anion Gap 10 (6-14) Blood Urea Nitrogen 12 mg/dL (8-26) Creatinine 1.0 mg/dL (0.7-1.3) Estimated GFR (Cockcroft-Gault) 80.1 Glucose Level 90 mg/dL (70-99) Calcium Level 8.8 mg/dL (8.5-10.1) Magnesium Level 2.3 mg/dL (1.8-2.4) Total Bilirubin 0.5 mg/dL (0.2-1.0) Direct Bilirubin 0.1 mg/dL (0.0-0.2) Aspartate Amino Transf (AST/SGOT) 11 U/L (15-37) Alanine Aminotransferase (ALT/SGPT) 16 U/L (16-63) Alkaline Phosphatase 49 U/L (46-116) Creatine Kinase 153 U/L (39-308) Troponin I Quantitative < 0.017 ng/mL (0-0.055) JJ-Gxe-U-Type Natriuretic Peptide 190 pg/mL (0-124) Total Protein 5.9 g/dL (6.4-8.2) Albumin 3.5 g/dL (3.4-5.0) Lipase 59 U/L (73-393) Salicylates Level 3.5 mg/dL (2.8-20.0) Salicylate Last Dose Date Unknown Salicylate Last Dose Time Unknown Acetaminophen Level < 2 mcg/mL (10-30) Acetaminophen Last Dose Date Unknown Acetaminophen Last Dose Time Unknown Valproic Acid (Depakene) Level 23 mcg/mL (50-100) Valproic Acid Last Dose Date Unknown Valproic Acid Last Dose Time Unknown Ethyl Alcohol Level < 10 mg/dL (0-10) Brief Hospital Course Mr. Mix is a 48 old male who presented with hx of suicidal ideation and no plan. Schizophrenia. Discharge Information Condition at Discharge: Improved Disposition/Orders: D/C to Home Dischare Medications Current Medications Lactated Ringer's 1,000 ml @ 1,000 mls/hr Q1H IV Last administered on 11/19/18at 00:23; Admin Dose 1,000 MLS/HR; Start 11/18/18 at 22:30; Stop 11/18/18 at 23:29; Status DC Multivitamins/ Minerals 10 ml/ Folic Acid 1 mg/ Thiamine HCl 100 mg/Lactated Ringer's 1,011.2 ml @ 1,011.2 mls/hr 1X ONCE IV Last administered on 11/18/18at 22:30; Admin Dose 1,011.2 MLS/HR; Start 11/18/18 at 22:30; Stop 11/18/18 at 23:29; Status DC Ibuprofen (Motrin) 400 mg 1X ONCE PO Last administered on 11/18/18at 22:46; Admin Dose 400 MG; Start 11/18/18 at 22:45; Stop 11/18/18 at 22:49; Status DC Thiamine HCl (Thiamine Vial) 200 mg STK-MED ONCE IV ; Start 11/18/18 at 22:37; Stop 11/18/18 at 22:38; Status DC Multivitamins/ Minerals (Infuvite Adult) 10 ml STK-MED ONCE IV ; Start 11/18/18 at 22:38; Stop 11/18/18 at 22:39; Status DC Folic Acid (FOLIC ACID SYRINGE for ER) 5 mg STK-MED ONCE IV ; Start 11/18/18 at 22:38; Stop 11/18/18 at 22:39; Status DC Valproic Acid (Depakene) 750 mg 1X ONCE PO Last administered on 11/19/18at 00:31; Admin Dose 750 MG; Start 11/19/18 at 00:00; Stop 11/19/18 at 00:01; Status DC Nicotine (Nicoderm Cq 21mg) 1 patch 1X ONCE TD ; Start 11/19/18 at 01:30; Stop 11/19/18 at 01:49; Status DC Lorazepam (Ativan) 2 mg 1X ONCE PO Last administered on 11/19/18at 01:47; Admin Dose 2 MG; Start 11/19/18 at 01:45; Stop 11/19/18 at 01:49; Status DC Olanzapine (ZyPREXA) 5 mg 1X ONCE PO Last administered on 11/19/18at 01:47; Admin Dose 5 MG; Start 11/19/18 at 01:45; Stop 11/19/18 at 01:49; Status DC Lorazepam (Ativan) 1 mg STK-MED ONCE .ROUTE ; Start 11/19/18 at 01:45; Stop 11/19/18 at 01:49; Status DC Olanzapine (ZyPREXA) 2.5 mg STK-MED ONCE .ROUTE ; Start 11/19/18 at 01:45; Stop 11/19/18 at 01:49; Status DC Active Scripts Active Reported Depakote Er (Divalproex Sodium) 500 Mg Tab.er.24h 750 Mg PO QHS [latuda] Ventolin Hfa Inhaler (Albuterol Sulfate) 18 Gm Hfa.aer.ad 1-2 Puff IH PRN Q4HRS PRN resume as needed Edie Disclaimer This chart was dictated in whole or in part using Voice Recognition software in a busy, high-work load, and often noisy Emergency Department environment. It may contain unintended and wholly unrecognized errors or omissions. MICHAEL ALEJANDRO MD Nov 18, 2018 21:43
[2018-11-18] MEDS ORDERED: DIVA500T4 PO (21:53)
[2018-11-18] MEDS ORDERED: latuda (21:53)
[2018-11-18] MEDS ORDERED: IV RINGERS SOLUTION,LACTATED 1,000 ML IV SCH (22:30)
[2018-11-18] MEDS ORDERED: MVI, ADULT NO.4 WITH VIT K 10 ML, FOLIC ACID SYRINGE for ER 1 MG, THIAMINE INJ 100 MG i... IV ONE ×4 (22:30)
[2018-11-18] MEDS ORDERED: THIAMINE 200 MG/2 ML VIAL. IV ONE (22:37)
[2018-11-18] MEDS ORDERED: MVI, ADULT NO.4 WITH VIT K 10 ML VIAL IV ONE (22:38)
[2018-11-18] MEDS ORDERED: FOLIC ACID 5 MG/ML SYRINGE for ER IV ONE (22:38)
[2018-11-18 22:42] LABS: BASO # 0.1 x10^3/uL (0.0-0.2); BASO % 1 % (0-3); EOS # 0.2 x10^3/uL (0.0-0.7); EOS % 2 % (0-3); HEMATOCRIT 42.5 % (39.0-53.0); HEMOGLOBIN 14.8 g/dL (13.0-17.5); LYMPH % 17 % (24-48); MEAN CORPUSCULAR HEMOGLOBIN 34 pg (25-35); MEAN CORPUSCULAR HGB CONC 35 g/dL (31-37); MEAN CORPUSCULAR VOLUME 96 fL (79-100); MONO # 0.6 x10^3/uL (0.0-1.1); MONO % 5 % (0-9); NEUT # 8.8 x10^3uL (1.8-7.7); NEUT % 76 % (31-73); PLATELET COUNT 215 x10^3/uL (140-400); RED BLOOD COUNT 4.41 x10^6/uL (4.30-5.70); RED CELL DISTRIBUTION WIDTH 14.3 % (11.5-14.5); WHITE BLOOD COUNT 11.6 x10^3/uL (4.0-11.0)
[2018-11-18] MEDS ORDERED: IBUPROFEN 400 MG TABLET. PO ONE (22:45)
[2018-11-18 22:48] LABS: BARBITURATES NEG (NEG); BENZODIAZEPINES NEG (NEG); CANNABINOIDS POS (NEG); COCAINE NEG (NEG); METHADONE NEG (NEG); OPIATES NEG (NEG); PHENCYCLIDINE NEG (NEG)
[2018-11-18 22:49] LABS: AMPHETAMINE/METHAMPHETAMINE NEG (NEG)
[2018-11-18 22:51] LABS: ETHANOL < 10 mg/dL (0-10); SALIC 3.5 mg/dL (2.8-20.0)
[2018-11-18 22:54] LABS: ACETAMIN < 2 mcg/mL (10-30)
[2018-11-18 22:55] LABS: BACTERIA,URINE 0 /HPF (0-FEW); BILIRUBIN,URINE NEG (NEG); CLARITY,URINE CLEAR; COLOR,URINE YELLOW; GLUCOSE,URINE NEG (NEG); NITRITE,URINE NEG (NEG); RBC,URINE 0 /HPF (0-2); SQUAMOUS EPITHELIAL CELL,UR OCC /LPF; UROBILINOGEN,URINE 0.2 mg/dL (0.2 mg/dL); WBC,URINE OCC /HPF (0-4)
[2018-11-18 23:05] LABS: ALBUMIN 3.5 g/dL (3.4-5.0); ALK PHOS 49 U/L (46-116); ALT (SGPT) 16 U/L (16-63); ANION GAP 10 (6-14); AST (SGOT) 11 U/L (15-37); BLOOD UREA NITROGEN 12 mg/dL (8-26); CALCIUM 8.8 mg/dL (8.5-10.1); CARBON DIOXIDE 27 mmol/L (21-32); CHLORIDE 106 mmol/L (98-107); DIRECT BILIRUBIN 0.1 mg/dL (0.0-0.2); GFR 80.1; GLUCOSE 90 mg/dL (70-99); LIPASE 59 U/L (73-393); MAGNESIUM 2.3 mg/dL (1.8-2.4); POTASSIUM 3.6 mmol/L (3.5-5.1); SODIUM 143 mmol/L (136-145); TOTAL BILIRUBIN 0.5 mg/dL (0.2-1.0); TOTAL PROTEIN 5.9 g/dL (6.4-8.2)
[2018-11-18 23:06] LABS: VAL ACID 23 mcg/mL (50-100)
[2018-11-19] MEDS ORDERED: VALPROIC ACID 250 MG CAPSULE. PO ONE
--- NOTE | 2018-11-19 01:15 | EKG ---
[address] [address] Test Date: 2018-11-18 Test Time: 22:31:20 Pat Name: SAIRA CLAY Department: Room: Gender: M G[employer] Cr[employer] Operator: : 1970 Requested By: MICHAEL ALEJANDRO Order Number: [id number] Reading MD: Measurements Intervals [place] Rate: 64 P: ME: QRS: 67 QRSD: 92 T: 58 QT: 376 QTc: 392 Interpretive Statements IRREGULAR RHYTHM, NO P-WAVE FOUND NO SPECIFIC ECG ABNORMALITIES RI6.01 Compared to ECG 01/17/2018 08:22:04 Sinus rhythm no longer present
[2018-11-19] MEDS ORDERED: NICOTINE 21MG PATCH. TD ONE (01:30)
[2018-11-19] MEDS ORDERED: LORazepam 1 MG TABLET ONE (01:45)
[2018-11-19] MEDS ORDERED: LORazepam 1 MG TABLET PO ONE (01:45)
[2018-11-19] MEDS ORDERED: OLANZapine 2.5 MG TABLET PO ONE (01:45)
[2018-11-19] MEDS ORDERED: OLANZapine 2.5 MG TABLET ONE (01:45)
== END 2018-11-19 01:49 | disposition home or self-care (01) ==
LOC: ER 21:34
DX: F30.9 Manic episode, unspecified (principal); F25.9 Schizoaffective disorder, unspecified; D72.829 Elevated white blood cell count, unspecified; F41.9 Anxiety disorder, unspecified; R89.2 Abnormal level of other drugs, medicaments and biological substances in specimens from other organs, systems and tissues; G89.29 Other chronic pain; F17.210 Nicotine dependence, cigarettes, uncomplicated; F12.90 Cannabis use, unspecified, uncomplicated; Z87.440 Personal history of urinary (tract) infections; Z88.8 Allergy status to other drugs, medicaments and biological substances; Z79.899 Other long term (current) drug therapy
CPT/HCPCS: 36415; 80048; 80076; 80164; 80307; 80329; 81001; 82550; 83690; 83735; 83880; 84443; 84484; 85025; 85379; 93005; 96365; 96366; 99285; G0480; J7120; 82003

== ENCOUNTER 2020-08-01 11:55 | Emergency (ER) | payer MEDICAID, OTHER ==
[~2020-08-01] VITALS: Ht 175.3 cm; Wt 98.5 kg
[2020-08-01 11:55] VITALS: BP 152/79
[~2020-08-01 11:55] MED LIST changes: +DIVA500T4 PO; -IBUP-1227 PO; +IBUP-1673 PO; +latuda
[2020-08-01] MEDS ORDERED: LORazepam 1 MG TABLET PO ONE (12:45)
--- NOTE | 2020-08-01 12:50 | PHYS DOC ---
Past History Past Medical History: Bipolar, Depression, Schizophrenia, UTI Additional Past Medical Histor: chronic shoulder pain bipolar disorder (DOROTEO GEORGE APRN) Past Surgical History: Appendectomy, Tonsillectomy (DOROTEO GEORGE APRN) Smoking: Cigarettes Alcohol Use: Rarely Drug Use: None (DOROTEO GEORGE APRN) Adult General Chief Complaint Chief Complaint: ANXIETY/PANIC ATTACK HPI HPI Patient is a 49-year-old male, presents emergency department complaining of an acute onset of anxiety at work today. Patient states the anxiety triggered was "being around people "patient states he has a long history of anxiety and depression, bipolar disorder, schizophrenia, sees mental health specialty at that [facility]. Patient states he has an appointment this Monday to see his primary care psych Quita strong was at the [facility]. Patient currently denies homicidal or suicidal ideation. Patient is requesting a work excuse for today and tomorrow. Patient denies head pain, fever or chills, visual disturbances, auditory or visual hallucinations, dizziness, chest pain, shortness of breath, abdominal pain, nausea vomiting or diarrhea. Patient denies any other physical complaints or physical concerns. Patient does report he had a new medication change in which he started taking Pristiq 3 days ago patient denies any allergic reactions to this medication or adverse drug reactions to this medication. (DOROTEO GEORGE APRN) Review of Systems Review of Systems 14 body systems of review of systems have been reviewed. See HPI for pertinent positives and negative responses, otherwise all other systems are negative, nonpertinent or noncontributory. (DOROTEO GEORGE APRN) Current Medications Current Medications Current Medications Medications (Trade) Dose Ordered Sig/Umer Start Time Stop Time Status Last Admin Dose Admin Lorazepam (Ativan) 1 mg 1X ONCE 08/01/20 12:45 08/01/20 12:46 UNV (DOROTEO GEORGE APRN) Allergies Allergies Allergies Coded Allergies Type Severity Reaction Last Updated Verified acetylcysteine Allergy Intermediate 11/18/18 Yes haloperidol Allergy Intermediate 11/18/18 Yes (DOROTEO GEORGE APRN) Physical Exam Physical Exam Constitutional: Well developed, well nourished, in acute mild emotional distress distress, non-toxic appearance. 49-year-old male in acute mild emotional distress, rocking back and forth while sitting on bed during examination. HENT: Normocephalic, atraumatic, bilateral external ears normal, oropharynx moist, no oral exudates, nose normal. Eyes: PERRLA, EOMI, conjunctiva normal, no discharge. Neck: Normal range of motion, no tenderness, supple, no stridor. No midline spinal pain, no meningismus signs, no nuchal rigidity. Cardiovascular:Heart rate regular rhythm, heart sounds S1-S2 auscultation. Lungs & Thorax: Bilateral breath sounds clear to auscultation all lung whitt, no adventitious lung sounds appreciated. Abdomen: Bowel sounds normal, soft, no tenderness, no masses, no pulsatile masses. Skin: Warm, dry, no erythema, no rash. Back: No tenderness, no CVA tenderness. Extremities: No tenderness, no cyanosis, no clubbing, ROM intact, no edema. Distal cap refill less than 2 seconds, +2/4 pulses Neurologic: Alert and oriented X 3, normal motor function, normal sensory function, no focal deficits noted. +2 bilateral patellar deep tendon reflexes, +2 bilateral brachial reflexes Psychologic: Affect anxious in appearance, judgement seems to have good insight on psychiatric problems, mood normal. (DOROTEO GEORGE APRN) EKG EKG [] (DOROTEO GEORGE APRN) Radiology/Procedures Radiology/Procedures [] (DOROTEO GEORGE APRN) Heart Score C/O Chest Pain: No Risk Factors: Risk Factors: DM, Current or recent (<one month) smoker, HTN, HLP, family history of CAD, obesity. Risk Scores: Risk Factors: DM, Current or recent (<one month) smoker, HTN, HLP, family history of CAD, obesity. (DOROTEO GEORGE APRN) Course & Med Decision Making Course & Med Decision Making Pertinent Labs and Imaging studies reviewed. (See chart for details) 49-year-old male, vital signs reviewed, presents to the emergency department with concerns of an anxiety attack while at work. Patient's physical examination consistent with acute anxiety, patient is not homicidal or suicidal, is not having auditory or visual hallucinations. Will treat with 1 mg tablet Ativan and reassess after a period of time. Patient is amenable to this plan. Upon reexamination of the patient after period of time, the patient is no longer anxious in appearance, states that he feels better and is able to "deal "with his problems without further medical intervention, patient continues to be nontoxic in appearance, states he will keep his appointment [facility]. Discussed with patient need to return to the emergency department for ongoing anxiety problems and/or suicidal or homicidal ideation, auditory or visual hallucinations. Patient gave verbal understanding of discharge home instructions, follow-up with psychiatry this Monday, return to emergency department precautions and concerns, patient was discharged home without incident. (DOROTEO GEORGE APRN) Course & Med Decision Making I oversaw on the above date of service of this patient and discussed the care with the EVENT SERVICES MANAGER. I agree with the findings, plan of care, and disposition as documented. Electronically signed, Ophelia Jones DO (OPHELIA JONES DO) Edie Disclaimer Dragluis enrique Disclaimer This electronic medical record was generated, in whole or in part, using a voice recognition dictation system. (DOROTEO GEORGE APRN) Departure Departure: Impression: Primary Impression: Anxiety attack Disposition: 01 DC HOME SELF CARE/HOMELESS Condition: GOOD Referrals: ADITYA JIMENEZ (PCP) Patient Instructions: Anxiety and Panic Attacks Additional Instructions: You were seen today in the emergency department for an anxiety attack, you were treated with 1 mg Ativan tablet, this treatment seemed to have helped you as you are no longer feeling anxious, I encourage you to keep your appointment with the [facility] this Monday for ongoing treatment. Please return to the emergency department for worsening symptoms or other concerns. I have given you a work excuse for 2 days, he may return to work on Monday pending your evaluation at the [facility]. EMERGENCY DEPARTMENT GENERAL DISCHARGE INSTRUCTIONS Thank you for coming to [facility] (ED) today and trusting us with you care. We trust that you had a positivie experience in our Emergency Department. If you wish to speak to the department management, you may call the director at [phone]. YOUR FOLLOW UP INSTRUCTIONS ARE FOLLOWS: 1. Do you have a private Doctor? If you do not have a private doctor, please ask for a resource list of physicians or clinics that may be able to assist you with follow up care. 2. The Emergency Physician has interpreted your x-rays. The X-Ray specialist will also review them. If there is a change in the findings, you will be notified in 48 hours when at all possible. 3. A lab test or culture has been done, your results will be reviewed and you will be notified if you need a change in treatment. ADDITIONAL INSTRUCTIONS AND INFORMATION: 1. Your care today has been supervised by a physician who is specially trained in emergency care. Many problems require more than one evaluation for a complete diagnosis and treatment. We recommend that you schedule your follow up appointment as recommended to ensure complete treatment of you illness or injury. If you are unable to obtain follow up care and continue to have a problem, or if your condition worsens, we recommend that you return to the ED. 2. We are not able to safely determine your condition over the phone nor are we able to give sound medical advice over the phone. For these safety reasons, if you call for medical advice we will ask you to come to the ED for further evaluation. 3. If you have any questions regarding these discharge instructions please call the ED at [phone]. SAFETY INFORMATION: In the interest of safety, wellness, and injury prevention; we encourage you to wear your sealbelt, if you smoke; quite smoking, and we encourage family to use a protective helmet for bicycling and other sporting events that present an increased risk for head injury. IF YOUR SYMPTOMS WORSEN OR NEW SYMPTOMS DEVELOP, OR YOU HAVE CONCERNS ABOUT YOUR CONDITION; OR IF YOUR CONDITION WORSENS WHILE YOU ARE WAITING FOR YOUR FOLLOW UP APPOINTMENT; EITHER CONTACT YOUR PRIMARY CARE DOCTOR, THE PHYSICIAN WHOSE NAME AND NUMBER YOU WERE GIVEN, OR RETURN TO THE ED IMMEDIATELY. DOROTEO GEORGE APRN Aug 01, 2020 12:50 OPHELIA JONES DO Aug 03, 2020 06:40
== END 2020-08-01 13:30 | disposition home or self-care (01) ==
LOC: ER 11:55
DX: F41.9 Anxiety disorder, unspecified (principal); F31.9 Bipolar disorder, unspecified; F20.9 Schizophrenia, unspecified; F17.210 Nicotine dependence, cigarettes, uncomplicated; G89.29 Other chronic pain; Z87.440 Personal history of urinary (tract) infections; Z88.8 Allergy status to other drugs, medicaments and biological substances
CPT/HCPCS: 99283

== ENCOUNTER 2021-05-01 21:30 | Emergency (ER) | payer MEDICAID ==
[~2021-05-01] VITALS: Ht 175.3 cm; Wt 93.6 kg
[~2021-05-01 21:30] MED LIST changes: -CYCL-331 PO; +CYCL10TA19 PO
--- NOTE | 2021-05-01 22:45 | PHYS DOC ---
Past History Past Medical History: Anxiety, Bipolar, Depression, Schizophrenia, UTI Additional Past Medical Histor: chronic shoulder pain bipolar disorder Past Surgical History: Appendectomy, Tonsillectomy Smoking: Cigarettes Alcohol Use: Rarely Drug Use: None Adult General Chief Complaint Chief Complaint: GI PROBLEM HPI HPI Patient is a 50-year-old male, current smoker with a past medical history significant for COPD who presents with a chief complaint of urine odor and cough. States over the last couple days he thinks his urine has had an odor to it that it usually does not. States it appears slightly darker than usual but does not think there is any blood in it. Denies any penile trauma, discharge, pain as well as scrotal pain. Denies any history of STIs. States he is making urine otherwise normally for him. States he is also had a cough for about the last month but does smoke and have COPD. Dente gets any worse than usual but requested a chest x-ray. Denies any other recent traumas, travels, illnesses, fevers, chest pain, shortness of breath, abdominal pain, nausea, vomiting, diarrhea or blood in the stool. Review of Systems Review of Systems Review of systems otherwise unremarkable except noted in HPI Allergies Allergies Allergies Coded Allergies Type Severity Reaction Last Updated Verified acetylcysteine Allergy Intermediate 11/18/18 Yes haloperidol Allergy Intermediate 11/18/18 Yes Physical Exam Physical Exam Constitutional: Well developed, well nourished, no acute distress, non-toxic appearance. [] HENT: Normocephalic, atraumatic, bilateral external ears normal, oropharynx moist, no oral exudates, nose normal. [] Eyes: conjunctiva normal, no discharge. [] Cardiovascular:Heart rate regular rhythm, no murmur [] Lungs & Thorax: Very mild, bilateral, scant rhonchi Abdomen: soft, no tenderness, no masses, no pulsatile masses. [] Skin: Warm, dry, no erythema, no rash. [] Extremities: No tenderness, ROM intact, no edema. [] Neurologic: Alert and oriented X 3, no focal deficits noted. [] Psychologic: Affect normal, judgement normal, mood normal. [] EKG EKG [] Radiology/Procedures Radiology/Procedures [] Heart Score C/O Chest Pain: No Risk Factors: Risk Factors: DM, Current or recent (<one month) smoker, HTN, HLP, family history of CAD, obesity. Risk Scores: Risk Factors: DM, Current or recent (<one month) smoker, HTN, HLP, family history of CAD, obesity. Course & Med Decision Making Course & Med Decision Making Patient is a 50-year-old male who presents with a chief complaint of urine odor and cough Vital signs not concerning. Physical exam noted above. Denied any need for pain or nausea medicine. Given breathing treatment, steroids and doxycycline for probable COPD exacerbation. Urinalysis not concerning. Discussed all findings with patient. Advised on COPD management. Advised to follow-up as soon as possible with his primary care physician. Gave return precautions to the ED. Family grateful, verbalized understanding and agreed with plan of discharge. [] Dragon Disclaimer Dragon Disclaimer This electronic medical record was generated, in whole or in part, using a voice recognition dictation system. Departure Departure: Impression: Primary Impression: Cough Additional Impressions: Abnormal urine odor COPD exacerbation Disposition: HOME / SELF CARE / HOMELESS Condition: GOOD Referrals: ADITYA JIMENEZ (PCP) Patient Instructions: Cough, Adult Additional Instructions: Thank you for coming into the emergency department tonight and allowing us to take care of you. Please read the attached information carefully to go back over some of the things we discussed. Please be sure to drink plenty of fluids. Please try to quit smoking cigarettes, as this could help improve your COPD symptoms. Please follow-up on Monday with your primary care physician to update on your ED visit and set up a follow-up as soon as possible. Please come back with new or concerning symptoms as discussed. Scripts Doxycycline Hyclate (DOXYCYCLINE HYCLATE) 100 Mg Capsule 1 CAP PO BID for COPD for 7 Days, #13 CAP Prov: CHANTE WAYNE MD 05/01/21 Problem Qualifiers CHANTE WAYNE MD May 01, 2021 22:45
--- NOTE | 2021-05-01 22:59 | RAD ---
XR CHEST 1V 05/01/2021 10:42 PM INDICATION: Productive cough for one week COMPARISON: None available TECHNIQUE: Portable frontal view of the chest is provided. FINDINGS: The cardiomediastinal silhouette is within normal limits. Bronchial wall thickening compatible nonspe cific bronchitis. There are no significant pleural effusions. There is no pulmonary vascular congesti on. No pneumothorax. No suspicious osseous abnormality. IMPRESSION: Bronchial wall thickening compatible with nonspecific bronchitis. Electronically signed by: Barbara Best MD (05/01/2021 10:56 PM) KELLI
[2021-05-01] MEDS ORDERED: DEXAMETHASONE 4 MG TABLET PO ONE (23:15)
[2021-05-01] MEDS ORDERED: DOXYCYCLINE HYCLATE 100 MG TABLET PO ONE (23:15)
[2021-05-01] MEDS ORDERED: IPRATRPIUM/ALBUTEROL 0.5/2.5MG 3 ML NEBU. NEB ONE (23:15)
[2021-05-01 23:26] LABS: BACTERIA,URINE 0 /HPF (0-FEW); BILIRUBIN,URINE NEG (NEG); CLARITY,URINE CLEAR; COLOR,URINE YELLOW; GLUCOSE,URINE NEG (NEG); NITRITE,URINE NEG (NEG); RBC,URINE 0 /HPF (0-2); SQUAMOUS EPITHELIAL CELL,UR OCC /LPF; WBC,URINE RARE /HPF (0-4)
[2021-05-01] MEDS ORDERED: DOXY100C3 PO (23:38)
[2021-05-01 23:45] VITALS: BP 142/68
== END 2021-05-01 23:50 | disposition home or self-care (01) ==
LOC: ER 21:30
DX: J44.1 Chronic obstructive pulmonary disease with (acute) exacerbation (principal); R82.998 Other abnormal findings in urine; R05.9 Cough, unspecified; F41.9 Anxiety disorder, unspecified; F31.9 Bipolar disorder, unspecified; F20.9 Schizophrenia, unspecified; F17.210 Nicotine dependence, cigarettes, uncomplicated; G89.29 Other chronic pain; Z87.440 Personal history of urinary (tract) infections; Z88.8 Allergy status to other drugs, medicaments and biological substances
CPT/HCPCS: 71045; 81001; 94640; 99284; J8540

== ENCOUNTER 2021-08-07 19:22 | Emergency (ER) | payer MEDICAID ==
[~2021-08-07] VITALS: Ht 175.3 cm; Wt 89.9 kg
[~2021-08-07 19:22] MED LIST changes: +DOXY100C3 PO
[2021-08-07] MEDS ORDERED: CLIN-95 PO (20:38)
--- NOTE | 2021-08-07 20:39 | PHYS DOC ---
Past History Past Medical History: Anxiety, Bipolar, Depression, Schizophrenia, UTI Additional Past Medical Histor: chronic shoulder pain Past Surgical History: Appendectomy, Tonsillectomy Smoking: Cigarettes Alcohol Use: None Drug Use: None Adult General Chief Complaint Chief Complaint: ABSCESS HPI HPI Patient is a otherwise healthy 50-year-old male who presents with a lesion on scrotum that says has been there for couple days. States it was draining yesterday but he squeezed it, got some fluid out and then it stopped. Denies any pain. Denies any fevers, nausea or vomiting. States he has had these before. Denies any penile pain, discharge. Denies any scrotal pain. Denies any history of STIs. Denies any damage to the area that he is aware of. Review of Systems Review of Systems Review of systems otherwise unremarkable except noted in HPI Allergies Allergies Allergies Coded Allergies Type Severity Reaction Last Updated Verified acetylcysteine Allergy Intermediate 11/18/18 Yes haloperidol Allergy Intermediate 11/18/18 Yes Physical Exam Physical Exam Constitutional: Well developed, well nourished, no acute distress, non-toxic appearance. [] Cardiovascular:Heart rate regular rhythm, no murmur [] Lungs & Thorax: Bilateral breath sounds clear to auscultation [] Abdomen: soft, no tenderness, no masses, no pulsatile masses. : Patient has a 1 cm circumferential lesion on scrotum, superficial, soft with no induration. Has a tiny bit of drainage. [] Skin: Warm, dry, no erythema, no rash. [] Back: no CVA tenderness. [] Neurologic: Alert and oriented X 3, normal motor function, normal sensory function, no focal deficits noted. [] Psychologic: Affect normal, judgement normal, mood normal. [] EKG EKG [] Radiology/Procedures Radiology/Procedures [] Heart Score C/O Chest Pain: No Risk Factors: Risk Factors: DM, Current or recent (<one month) smoker, HTN, HLP, family history of CAD, obesity. Risk Scores: Risk Factors: DM, Current or recent (<one month) smoker, HTN, HLP, family history of CAD, obesity. Course & Med Decision Making Course & Med Decision Making Patient is a 50-year-old male who presents with an abscess/cyst on scrotum superficially Vital signs nonconcerning. Physical exam noted above. Started on antibiotics in the emergency department for superficial cellulitis Discussed symptom treatment at home. Advised on hygiene. Advised to follow-up next week with primary care physician for wound check. Gave return precautions to the ED. Patient grateful, verbalized understanding and agreed with plan of discharge. [] Dragon Disclaimer Dragon Disclaimer This electronic medical record was generated, in whole or in part, using a voice recognition dictation system. Departure Departure: Impression: Primary Impression: Cellulitis Disposition: HOME / SELF CARE / HOMELESS Condition: STABLE Referrals: ADITYA JIMENEZ (PCP) Patient Instructions: Cellulitis Additional Instructions: Thank you for coming into the emergency department tonight and allowing us to take care of you. Please read the attached information carefully to go over things we discussed. Please take all your antibiotics as prescribed and until gone. You can use ibuprofen and Benadryl as needed. You can also use ice. Please keep the area clean with warm soap and water several times daily and wear close that prevent skin from rubbing together as we discussed. Please follow- up next week with your primary care physician and set up a follow-up for reevaluation. Please come back with new or concerning symptoms as discussed. Scripts Clindamycin Hcl (CLINDAMYCIN HCL) 300 Mg Capsule 1 CAP PO TID for cellulitis for 7 Days, #21 CAP Prov: CHANTE WAYNE MD 08/07/21 CHANTE WAYNE MD Aug 07, 2021 20:38
[2021-08-07 20:50] VITALS: BP 132/86
[2021-08-07] MEDS ORDERED: diphenhydrAMINE HCL 25 MG CAPSULE PO ONE (21:00)
[2021-08-07] MEDS ORDERED: CLINDAMYCIN HCL 150 MG CAPSULE PO ONE (21:00)
[2021-08-07] MEDS ORDERED: IBUPROFEN 600 MG TABLET. PO ONE (21:00)
== END 2021-08-07 20:50 | disposition home or self-care (01) ==
LOC: ER 19:23
DX: N49.2 Inflammatory disorders of scrotum (principal); F31.9 Bipolar disorder, unspecified; F41.9 Anxiety disorder, unspecified; F20.9 Schizophrenia, unspecified; F17.210 Nicotine dependence, cigarettes, uncomplicated; Z90.89 Acquired absence of other organs; Z87.440 Personal history of urinary (tract) infections; Z88.8 Allergy status to other drugs, medicaments and biological substances
CPT/HCPCS: 99284; Q0163

== ENCOUNTER → 2021-08-12 | Outpatient (CLI) | payer MEDICAID ==
[2021-08-07 20:50] VITALS: BP 132/86
[~2021-08-12] MED LIST changes: +CLIN-95 PO
--- NOTE | 2021-08-13 12:21 | RAD ---
US TESTICULAR History: Reason: SCROTAL ABSCESS / Spl. Instructions: / History: Comparison: None. Technique: Multiple grayscale, color flow Doppler and Doppler spectral analysis images of the scrotum are obtained. Findings: Right testicle measures 5.3 x 3.7 x 1.8 cm. Right testicle demonstrates normal parenchymal echogenic ity. Right epididymis is unremarkable. Left testicle measures 5.2 x 3.5 x 2.0 cm. Left testicle demonstrates normal parenchymal echogenici ty. Left epididymis is unremarkable. There is no hydrocele or varicocele. Doppler imaging demonstrates normal flow to both testicles, without evidence of torsion. Small hypoechoic lesion involving the scrotum cutaneous and subcutaneous measures 0.5 x 0.4 x 0.4 cm. IMPRESSION: 1. Small hypoechoic lesion within the scrotum, may represent abscess if concern for infection. Recom mend follow-up after treatment to ensure resolution. Electronically signed by: Burt Ngo DO (08/13/2021 10:47 AM) [id number]
== END ==
LOC: US 15:49
PROVIDERS: ATTEND Family Medicine
DX: N49.2 Inflammatory disorders of scrotum (principal)
CPT/HCPCS: 76870